=== PATIENT | female | born 1975 | race Caucasian/White ===

== ENCOUNTER 2023-10-27 15:46 | Outpatient (REF) | payer BC, SELFPAY ==
[2023-10-27 21:16] LABS: TSH 0.74 uIU/mL (0.36-3.74)
== END 2023-10-27 15:47 | disposition home or self-care (01) ==
LOC: NCHCN 15:46
PROVIDERS: PCP Internal Medicine; Visit Provider Nurse Practitioner Family
DX: R22.1 Localized swelling, mass and lump, neck (principal)
CPT/HCPCS: 84439; 84443

== ENCOUNTER 2023-12-06 17:08 | Outpatient (REF) | payer BC, SELFPAY ==
--- NOTE | 2023-12-06 14:30 | PAPNONF_PTH ---
PATIENT: Janie Askew LOC: [facility] U#:[id number] AGE/SX: 48/F ROOM: RE12/06/[address]: Raya Rob : 1975 BED: DIS: 12/06/2023 SPEC #: [id number] RECD: 12/06/23 18:21 STATUS: DIGNA REDaniel #: [id number] [place]: 12/06/23 14:[address]: Raya Rob DEPT: [facility] Cytology RECD BY: Iona Larsen ENTERED: 12/06/23 18:22 SP TYPE: NESSA AVILES DR: Miriam Quiles Tissues: 1 - BODY FLUID CYTO-FINE NEEDLE [facility] Procedures: BODY FLUID CYTO-FINE NEEDLE ASPIRATE[facility] Comments: [id number] (REFRIGERATED)
== END 2023-12-06 17:09 | disposition home or self-care (01) ==
LOC: LBN 17:08
PROVIDERS: PCP Nurse Practitioner Family; Visit Provider Registered Nurse Maternal Newborn
DX: E04.1 Nontoxic single thyroid nodule (principal)
CPT/HCPCS: 88104

== ENCOUNTER → 2023-12-21 04:04 | Outpatient (CLI) | payer BC, SELFPAY ==
--- NOTE | 2023-12-21 07:45 | DI.US_ITS ---
Exam(s) US NEEDLE LOCAL OTHER WO RAD EXAM: US NEEDLE LOCAL OTHER WO RAD CLINICAL HISTORY: right-sided thyroid nodule, TR 4,ultraosound guided bx,e04.1. COMPARISON: US US SOFT TISSUE HEAD OR NECK from 11/02/2023 TECHNIQUE: Ultrasound guidance was provided for ultrasound-guided FNA performed by surgeon. Please see procedure report for details. FINDINGS: Images reveal multiple passes into the nodule of concern in the right lobe. IMPRESSION: Successful Ultrasound-guided Localization. DATA REPOSITORY:
--- NOTE | 2023-12-21 13:30 | PAPNONF_PTH ---
PATIENT: Janie Askew LOC: [facility] U#:[id number] AGE/SX: 50/F ROOM: RE12/21/[address]: Raya Rob : 1975 BED: DIS: SPEC #: [id number] RECD: 12/21/23 17:54 STATUS: DIGNA REQ #: [id number] [place]: 12/21/23 13:[address]: Raya Rob DEPT: [facility] Cytology RECD BY: Iona Larsen ENTERED: 12/21/23 17:55 SP TYPE: NESSA AVILES DR: Miriam Quiles Tissues: 1 - BODY FLUID CYTO-FINE NEEDLE [facility]ATE[facility] Procedures: BODY FLUID CYTO-FINE NEEDLE [facility]ATE[facility] Comments: [id number] (AFIRMA ONLY-N/C)(SEE [id number], [facility]# [id number])
--- NOTE | 2023-12-21 13:51 | W.PROCNOTE ---
Date of service: 12/21/23 Time of Service: 13:51 Procedure Note Date of procedure: 12/21/23 Procedure: Ultrasound-guided FNA for Afirma testing, right thyroid nodule Procedure Diagnosis: Right-sided mixed solid and cystic thyroid nodule Procedure Indications: The patient previous underwent FNA of the right thyroid nodule in the office. This had features that were concerning for an atypia of unknown significance with features that were concerning for possible papillary carcinoma. Options were explained to the patient regarding further management. She elected to undergo the Afirma testing while waiting for her appointment [place] [facility] Risks including bleeding, infection were discussed at length. Consent was obtained. The below was then performed. Procedure Description: The patient was positioned in supine position and prepped and draped in appropriate fashion. 1% lidocaine with 1/100,000 epinephrine was injected medial to the thyroid nodule after localizing the thyroid nodule with ultrasound. FNA was then conducted of the thyroid nodule wall solid component using ultrasound guidance. This was then placed and Afirma. This was repeated x 2. Sterile dressing was then applied. Of note the cystic contents appeared to be a chocolate brown material. The cyst was not aspirated save for to identify the cystic contents her vital signs remained stable and she was able to ambulate afterwards without difficulty. She will call if she does not hear from me within 3 weeks with regard to pathology results. She will keep her appointment as scheduled at [facility] [place]. Stormy Spear. She will call with any signs of infection. She will remove the bandage in a couple of hours and not replace it. She may use ibuprofen or Tylenol for discomfort.
== END ==
PROVIDERS: PCP Nurse Practitioner Family; Visit Provider Registered Nurse Maternal Newborn
DX: E04.1 Nontoxic single thyroid nodule (principal)
CPT/HCPCS: 10005; 76942; 88104

== ENCOUNTER 2024-01-13 02:59 | Outpatient (CLI) | payer BC, SELFPAY ==
[2024-01-13 12:17] LABS: Calculated LDL 106 mg/dL (<100); Cholesterol 199 mg/dL (<200); Glucose 92 mg/dL (74-106); HDL Cholesterol 62 mg/dL (40-60); Triglyceride 155 mg/dL (<150)
== END 2024-01-13 03:00 | disposition home or self-care (01) ==
LOC: LBO 03:00
PROVIDERS: PCP Nurse Practitioner Family; Visit Provider Nurse Practitioner Family
DX: Z13.220 Encounter for screening for lipoid disorders (principal); Z13.1 Encounter for screening for diabetes mellitus
CPT/HCPCS: 36415; 80061; 82947

== ENCOUNTER 2024-01-31 20:57 | Outpatient (REF) | payer BC, SELFPAY ==
[2024-01-31 18:49] LABS: Anion Gap 5.7 mmol/L (3-11); BUN 15 mg/dL (7-18); CO2 27.3 mmol/L (21.0-32.0); CREATININE 0.8 mg/dL (0.55-1.02); Calcium 8.9 mg/dL (8.5-10.1); Chloride 106 mmol/L (98-107); Estimated GFR 89.71 (mL/min/1.73m2); Glucose 109 mg/dL (74-106); Potassium 4.1 mmol/L (3.5-5.1); Sodium 139 mmol/L (136-145)
== END 2024-01-31 20:58 | disposition home or self-care (01) ==
LOC: NCHCN 20:57
PROVIDERS: PCP Nurse Practitioner Family; Visit Provider Nurse Practitioner Family
DX: R03.0 Elevated blood-pressure reading, without diagnosis of hypertension (principal)
CPT/HCPCS: 80048

== ENCOUNTER 2024-02-17 16:42 | Outpatient (REF) | payer BC, SELFPAY ==
[2024-02-17 18:52] LABS: Anion Gap 10.5 mmol/L (3-11); BUN 16 mg/dL (7-18); CO2 23.5 mmol/L (21.0-32.0); CREATININE 0.7 mg/dL (0.55-1.02); Chloride 105 mmol/L (98-107); Glucose 99 mg/dL (74-106); Potassium 4.1 mmol/L (3.5-5.1); Sodium 139 mmol/L (136-145)
== END 2024-02-17 16:43 | disposition home or self-care (01) ==
LOC: NCHCN 16:42
PROVIDERS: PCP Nurse Practitioner Family; Visit Provider Nurse Practitioner Family
DX: I10 Essential (primary) hypertension (principal)
CPT/HCPCS: 80048

== ENCOUNTER 2024-04-06 21:56 | Outpatient (REF) | payer BC, SELFPAY ==
[2024-04-06 19:10] LABS: Anion Gap 9.7 mmol/L (3-11); BUN 13 mg/dL (7-18); CO2 29.3 mmol/L (21.0-32.0); CREATININE 0.7 mg/dL (0.55-1.02); Calcium 9.5 mg/dL (8.5-10.1); Chloride 102 mmol/L (98-107); Glucose 98 mg/dL (74-106); Potassium 3.7 mmol/L (3.5-5.1); Sodium 141 mmol/L (136-145)
== END 2024-04-06 21:57 | disposition home or self-care (01) ==
LOC: NCHCN 21:56
PROVIDERS: PCP Nurse Practitioner Family; Visit Provider Physician Assistant Medical
DX: R03.0 Elevated blood-pressure reading, without diagnosis of hypertension (principal)
CPT/HCPCS: 80048

== ENCOUNTER 2024-05-08 11:11 | Emergency (ER) | payer BC, SELFPAY ==
[2024-05-08] VITALS (72 sets, daily range): BP systolic 132–215; BP diastolic 68–130; PULSE 71–161; RESP 10–43; TEMP 37.1; O2SAT 84–100
--- NOTE | 2024-05-08 11:15 | RT.EKG_ITS ---
APPROVED REPORT Exam: Resting ECG Reason for Exam: tachycardia, shortness of breath Patient Location: E HR:117 bpm ECG Measurements Heart Rate 117 AXIS VA 138 P 63 QRSd 82 QRS 54 QT 327 T 27 QTc 457 Conclusion Sinus tachycardia...rate> 99 Consider anteroseptal infarct...Q >30mS, dimin R, V1-V2
[2024-05-08 11:32] LABS: HCT 44.9 % (36.0-46.0); HGB 15.2 g/dL (11.2-15.7); MCH 31.7 pg (27.0-33.0); MCHC 33.9 % (32.0-36.0); MCV 94 fL (80-95); MPV 9.3 fL (8.0-11.0); Platelet Count 336 10^3/uL (130-400); RDW 12.6 % (11.7-14.6); RDW-SD 43.8 fL; WBC 10.59 10^3/uL (4.4-10.8)
[2024-05-08] MEDS: LORazepam 2 MG/ML VIAL 1 MG IVP (11:34)
[2024-05-08] MEDS: Lactated Ringers 1,000 ML 1000 ML IV (11:34)
[2024-05-08 11:54] LABS: Absolute Eosinophil Count 0.42 10^3/uL (0.0-0.7); Absolute Lymphocyte Count 4.77 10^3/uL (1.2-3.4); Absolute Monocyte Count 0.64 10^3/uL (0.1-0.8); Absolute Neutrophil Count 4.66 10^3/uL (1.2-6.7); Atypical Lymphocytes % 25 %; Diff Comment Manual Differential; RBC Morphology Normal
[2024-05-08 11:59] LABS: ALT 26 U/L (14-59); AST 21 U/L (15-37); Albumin 4.5 g/dL (3.4-5.0); Alkaline Phosphatase 120 U/L (46-116); BUN 14 mg/dL (7-18); Bilirubin, Total 0.94 mg/dL (0.2-1.0); CREATININE 1.1 mg/dL (0.55-1.02); Calcium 8.3 mg/dL (8.5-10.1); Chloride 99 mmol/L (98-107); Estimated GFR 61.22 (mL/min/1.73m2); Glucose 138 mg/dL (74-106); Magnesium 1.8 mg/dL (1.8-2.4); Potassium 4.1 mmol/L (3.5-5.1); Sodium 142 mmol/L (136-145); TSH (W/Ref FT4) 0.16 uIU/mL (0.36-3.74); Total Protein 8.6 g/dL (6.4-8.2); Troponin I < 50 ng/L (< or =60)
[2024-05-08 12:08] LABS: D-Dimer 807 ng/mlFEU (<500)
[2024-05-08 12:15] LABS: FREE T4 1.54 ng/dL (0.76-1.46)
--- NOTE | 2024-05-08 13:00 | DI.RAD_ITS ---
Exam(s) XR PORTABLE CHEST AP EXAM: XR PORTABLE CHEST AP CLINICAL HISTORY: tachycardia TECHNIQUE: 2D digital imaging was performed. COMPARISON: No exams were available for comparison FINDINGS: LUNGS: Clear. No pleural abnormality seen. HEART: Normal size. AORTA: Normal diameter. BONES: Unremarkable for age. Soft tissues: Unremarkable. IMPRESSION: No acute findings. DATA REPOSITORY: RADIATION DOSE DELIVERED:
--- NOTE | 2024-05-08 13:12 | DI.NM_ITS ---
Exam(s) NM LUNG SCAN VENT PERF GRP EXAM: NM LUNG SCAN VENT PERF GRP CLINICAL HISTORY: elevated ddimer. TECHNIQUE: Injected Dose: Ventilation: 34 mCi Tc-99m DTPA via inhalation Perfusion: 5.2 mCi Tc-99m MAA via IV COMPARISON: CR XR PORTABLE CHEST AP from 05/08/2024 FINDINGS: Chest X-Ray: Clear lungs. Perfusion: Normal. Ventilation:Normal IMPRESSION: 1. This is a normal perfusion scan. This is low probability. Modified PIOPED II criteria Probability Criteria High Two or more segments of V/Q mismatch Low Normal Perfusion, Non segmental perfusion abnormalitie s, pleural effusion in at least 1/3 of pleural cavity with no other defect Radiograph/perfusion matched defect in mid to upper lung confined to segment, one to three small segmental perfusion defects (<25% of segment) Perfusion defect smaller than corresponding radiogra phic lesion. Intermediate All other findings DATA REPOSITORY:
--- NOTE | 2024-05-08 15:25 | ED.GENADUL_ITS ---
Discharge Plan Disposition Patient Disposition: Home Condition: Stable Discharge Details Clinical Impression: Hypocalcemia Primary Care Provider: Miriam Quiles ED Provider: Carlos Anthony Home Meds and New Rx's Prescriptions: Continued fluoxetine [Prozac] 10 mg capsule 10 mg PO DAILY levothyroxine 150 mcg tablet 150 mcg PO ONCE Patient Comments: TAKE ONE TABLET BY MOUTH EVERY DAY hydrochlorothiazide 25 mg tablet 25 mg PO DAILY Patient Comments: TAKE ONE TABLET BY MOUTH EVERY MORNING No Action calcium carbonate [Calcium 600] 600 mg calcium (1,500 mg) tablet 1,200 mg PO BID Discharge Instructions Instructions: Hypocalcemia Additional Instructions: Please take your medication as prescribed. Please follow-up with your primary care physician. Please call today to arrange timely follow-up. Please rest with no exertional activities over the next week. Return to the emergency department immediately for any worsening or new concerning symptoms. Referrals: Miriam Quiles APRN [Primary Care Provider] - Discharge Data Discharge Date/Time-TO BE ENTERED AT DEPARTURE: 05/08/24 18:29 HPI General Date/Time Provider Initiated Documentation: 05/08/24 11:23 . Limitations to Documentation: no limitations . Information obtained by: patient . HPI Narrative: 57-year-old female presents with carpopedal spasm and tingling of the lips with anxiety and dyspnea. Symptoms started after exertional activities mowing the yard in the heat. Symptoms are severe. She feels like she cannot breathe. She notes she feels like she cannot feel her arms bilaterally. She also notes her legs are numb and tingly bilaterally. Patient is approximately 2 weeks status post thyroidectomy for thyroid cancer. She notes she was concerned that this was related to hypocalcemia and did take her calcium supplement after symptoms started. Related Data Home Medications ?Medication ?Instructions ?Recorded ?Confirmed fluoxetine 10 mg capsule (Prozac) 10 mg PO DAILY 12/06/23 05/08/24 calcium carbonate (Calcium 600) 1,200 mg PO BID 05/08/24 05/08/24 hydrochlorothiazide 25 mg tablet 25 mg PO DAILY 05/08/24 05/08/24 levothyroxine 150 mcg tablet 150 mcg PO ONCE 05/08/24 05/08/24 Allergies Allergy/AdvReac Type Severity Reaction Status Date / Time No Known Allergies Allergy Verified 05/08/24 13:12 General Stated Complaint: GenMedical CRYSTAL: 2 Review of Systems All systems reviewed & are unremarkable except as noted in HPI and below Constitutional Constitutional: Denies fever(s) Cardiovascular Cardiovascular: Denies chest pain and Reports dyspnea Respiratory Respiratory: Reports dyspnea Exam Const General: cooperative Orientation: alert Other: Anxious on arrival HENTN Mouth: moist mucous membranes Eyes Conjunctivae: normal conjunctivae Sclera: normal sclerae Neck Neck: trachea midline and supple Resp Auscultation: clear to auscultation bilaterally, no rales, no rhonchi and no wheezes Cardio Rate: regular rate and not tachycardic Rhythm: regular rhythm GI Palpation: soft, not firm, no guarding, no masses, not rigid and nontender Skin General skin exam: no rashes or lesions noted Neuro General: patient alert, patient awake and tone normal Cranial Nerves: CN's II-XI intact bilaterally Cognition: normal cognition Speech: speech normal Motor: strength 5/5 throughout Sensory Exam: no sensory deficits noted Extrem General: no edema Other: Spasms of her arms and legs Psych Appearance: grossly normal Mental Status: mental status grossly normal Affect: anxious affect Course Vital Signs Vital signs: Vital Signs Pulse 159 H 05/08/24 11:20 Respiratory Rate 28 H 05/08/24 11:20 Blood Pressure 215/130 H 05/08/24 11:20 Pulse Oximetry 99 05/08/24 11:20 Temperature 37.1 C 05/08/24 11:34 Temperature Source Tympanic 05/08/24 11:34 Pulse 82 05/08/24 15:16 Pulse 79 05/08/24 15:16 Respiratory Rate 17 05/08/24 15:16 Respiratory Effort Normal 05/08/24 11:34 Respiratory Depth Normal 05/08/24 11:34 Respiratory Pattern Normal 05/08/24 11:34 Blood Pressure 146/80 H 05/08/24 15:16 Blood Pressure Mean 101 05/08/24 15:16 Blood Pressure Position Supine 05/08/24 11:34 Pulse Oximetry 96 05/08/24 15:16 Oxygen Delivery Method Room Air 05/08/24 11:34 Oxygen Flow Rate 0 05/08/24 11:20 Pain Level 0 05/08/24 11:20 Lab/Test Results Lab/Test Results: Laboratory Tests Range/Units 05/08/24 11:25 WBC (4.4-10.8) 10^3/uL 10.59 RBC (3.93-5.22) 10^6/uL 4.80 Hgb (11.2-15.7) g/dL 15.2 Hct (36.0-46.0) % 44.9 MCV (80-95) fL 94 MCH (27.0-33.0) pg 31.7 MCHC (32.0-36.0) % 33.9 RDW (11.7-14.6) % 12.6 Plt Count (130-400) 10^3/uL 336 MPV (8.0-11.0) fL 9.3 Immature Gran % % 0.0 Neutrophils % % 44.0 Lymphocytes % % 20.0 Atypical Lymphs % % 25 Monocytes % % 6.0 Eosinophils % % 4.0 Basophils % % 0.0 Nucleated RBC % (0.0-0.3) % 0.0 Absolute Neutrophils (1.2-6.7) 10^3/uL 4.66 Absolute Lymphocytes (1.2-3.4) 10^3/uL 4.77 H Absolute Monocytes (0.1-0.8) 10^3/uL 0.64 Absolute Eosinophils (0.0-0.7) 10^3/uL 0.42 Absolute Basophils (0.0-0.2) 10^3/uL 0.00 RBC Morphology Normal D-Dimer (<500) ng/mlFEU 807 H Sodium (136-145) mmol/L 142 Potassium (3.5-5.1) mmol/L 4.1 Chloride (98-107) mmol/L 99 Carbon Dioxide (21.0-32.0) mmol/L 25.0 Anion Gap (3-11) mmol/L 18.0 H BUN (7-18) mg/dL 14 Creatinine (0.55-1.02) mg/dL 1.1 H Est GFR (CKD-EPI 2020) (mL/min/1.73m2) 61.22 Glucose (74-106) mg/dL 138 H Calcium (8.5-10.1) mg/dL 8.3 L Magnesium (1.8-2.4) mg/dL 1.8 Total Bilirubin (0.2-1.0) mg/dL 0.94 AST (15-37) U/L 21 ALT (14-59) U/L 26 Alkaline Phosphatase (46-116) U/L 120 H Troponin I (< or =60) ng/L < 50 Total Protein (6.4-8.2) g/dL 8.6 H Albumin (3.4-5.0) g/dL 4.5 TSH (0.36-3.74) uIU/mL 0.16 L Free T4 (0.76-1.46) ng/dL 1.54 H Medical Decision Making 57-year-old female presents with carpopedal spasm and tingling of the lips with anxiety and dyspnea. Symptoms started after exertional activities mowing the yard in the heat. Patient is approximately 2 weeks status post thyroidectomy for thyroid cancer. She notes she was concerned that this was related to hypocalcemia and did take her calcium supplement after symptoms started. EKG was reviewed and interpreted by me: Please see report: Sinus tachycardia 117 bpm, no STEMI. Patient quite anxious on arrival. She was given Ativan 1 mg IV. Initial labs reviewed: D-dimer is elevated. CT is not available. VQ scan was performed and interpreted by radiology: Normal perfusion. No evidence of pulmonary embolism. Suspect hypocalcemia. Patient did take her calcium supplement prior to arrival and continue to have hypocalcemia. Will give calcium gluconate IV. Patient has had a prolonged ED observation at this point. She has been symptom- free here after Ativan. 1750 --patient reassessed and notes she continues to feel well. Plan for discharge upon completion of calcium infusion. Plan for outpatient follow-up with PCP. Disposition decision was made weighing the risks and benefits of hospitalization versus outpatient treatment, the risk for further decompensation, and the patient's wishes. The patient was stable and requested discharge. Prior to discharge, my usual and customary return precautions were reviewed with the patient - this included follow-up instructions and reason to return to the emergency department if condition worsens, does not improve as expected, or other new concerns arise. Lab Data Lab results reviewed: Yes I reviewed the patient's lab results. Labs: Laboratory Tests Range/Units 05/08/24 11:25 WBC (4.4-10.8) 10^3/uL 10.59 RBC (3.93-5.22) 10^6/uL 4.80 Hgb (11.2-15.7) g/dL 15.2 Hct (36.0-46.0) % 44.9 MCV (80-95) fL 94 MCH (27.0-33.0) pg 31.7 MCHC (32.0-36.0) % 33.9 RDW (11.7-14.6) % 12.6 Plt Count (130-400) 10^3/uL 336 MPV (8.0-11.0) fL 9.3 Immature Gran % % 0.0 Neutrophils % % 44.0 Lymphocytes % % 20.0 Atypical Lymphs % % 25 Monocytes % % 6.0 Eosinophils % % 4.0 Basophils % % 0.0 Nucleated RBC % (0.0-0.3) % 0.0 Absolute Neutrophils (1.2-6.7) 10^3/uL 4.66 Absolute Lymphocytes (1.2-3.4) 10^3/uL 4.77 H Absolute Monocytes (0.1-0.8) 10^3/uL 0.64 Absolute Eosinophils (0.0-0.7) 10^3/uL 0.42 Absolute Basophils (0.0-0.2) 10^3/uL 0.00 RBC Morphology Normal D-Dimer (<500) ng/mlFEU 807 H Sodium (136-145) mmol/L 142 Potassium (3.5-5.1) mmol/L 4.1 Chloride (98-107) mmol/L 99 Carbon Dioxide (21.0-32.0) mmol/L 25.0 Anion Gap (3-11) mmol/L 18.0 H BUN (7-18) mg/dL 14 Creatinine (0.55-1.02) mg/dL 1.1 H Est GFR (CKD-EPI 2020) (mL/min/1.73m2) 61.22 Glucose (74-106) mg/dL 138 H Calcium (8.5-10.1) mg/dL 8.3 L Magnesium (1.8-2.4) mg/dL 1.8 Total Bilirubin (0.2-1.0) mg/dL 0.94 AST (15-37) U/L 21 ALT (14-59) U/L 26 Alkaline Phosphatase (46-116) U/L 120 H Troponin I (< or =60) ng/L < 50 Total Protein (6.4-8.2) g/dL 8.6 H Albumin (3.4-5.0) g/dL 4.5 TSH (0.36-3.74) uIU/mL 0.16 L Free T4 (0.76-1.46) ng/dL 1.54 H Quality:SDOH Health Related Social Needs: No Data to Display PFSH All Active Problems (Updated 05/08/24 @ 16:45 by Carlos Anthony MD) Hypocalcemia (Acute) Thyroid nodule (Acute) Medical History (Updated 05/08/24 @ 16:45 by Carlos Anthony MD) History of depression Neck swelling Acute sinusitis Social History Smoking/Tobacco Use Status: Former Tobacco Use Tobacco: How many years used: 25 Smoking risk assessment performed?: Yes Alcohol Intake: current Alcohol Intake frequency: a few times a week Housing: house Do you feel safe at home: No Do you feel safe in your relationship?: No
--- NOTE | 2024-05-08 16:40 | DI.VRAD_ITS ---
PROCEDURE INFORMATION: Exam: NM Lung Ventilation and Perfusion Imaging Exam date and time: 05/08/2024 3:45 PM Age: 49 years old Clinical indication: Dyspnea and other: Elevated d-dimer TECHNIQUE: Imaging protocol: Nuclear pulmonary ventilation with aerosol or gas was performed followed by perfusion. Radiopharmaceutical: 5.2 mCi Tc-99m MAA (Macroaggregated Albumin), IV. 34 mCi Tc-99m DTPA (DTPA Aerosol), Inhalation. COMPARISON: CR XR PORTABLE CHEST AP 05/08/2024 1:54 PM FINDINGS: Ventilation: Normal. No ventilation defects. Perfusion: Normal. No perfusion defects. IMPRESSION: Normal perfusion. No evidence of pulmonary embolism. Dictated and Authenticated by: Luciano Hogan MD. Ordering:JESSI Gonzalez MD
[2024-05-08] MEDS: CALCIUM GLUCONATE in NaCl 1 GM/50 ML BAG IVPB (17:44)
== END 2024-05-08 18:29 | disposition home or self-care (01) ==
PROVIDERS: Emergency Provider Student in an Organized Health Care Education/Training Program; PCP Nurse Practitioner Family
DX: E83.51 Hypocalcemia (principal); E89.0 Postprocedural hypothyroidism; Z85.850 Personal history of malignant neoplasm of thyroid; Z87.891 Personal history of nicotine dependence
CPT/HCPCS: 78582; 80053; 93005; 96361; 96365; 96375; 99285; 71045; 83735; 84439; 84443; 84484; 85025; 85379; 93010; 99284; J0613; J2060

== ENCOUNTER 2024-07-06 03:26 | Outpatient (CLI) | payer BC, SELFPAY ==
[2024-07-06 16:40] LABS: Calcium 7.3 mg/dL (8.5-10.1); Vitamin D 25 Total 22.5 ng/mL (30-100)
[2024-07-06 21:48] LABS: Ionized Calcium 0.85 mmol/L (1.14-1.35)
[2024-07-07 18:33] LABS: Parathyroid Hormone,Intact 27 pg/mL (19-88)
== END 2024-07-06 03:27 | disposition home or self-care (01) ==
LOC: LBO 03:26
PROVIDERS: PCP Nurse Practitioner Family; Visit Provider Nurse Practitioner Adult Health
DX: E83.51 Hypocalcemia (principal)
CPT/HCPCS: 36415; 82306; 82310; 82330; 83970

== ENCOUNTER 2024-08-24 15:42 | Outpatient (CLI) | payer BC, SELFPAY ==
[2024-08-24 16:27] LABS: Calcium 8.4 mg/dL (8.5-10.1)
[2025-08-27 09:38] LABS: Parathyroid Hormone,Intact 17 pg/mL (19-88)
== END 2024-08-24 15:43 | disposition home or self-care (01) ==
LOC: LBO 15:46
PROVIDERS: PCP Nurse Practitioner Family; Visit Provider Nurse Practitioner Adult Health
DX: E83.51 Hypocalcemia (principal)
CPT/HCPCS: 36415; 82310; 83970

== ENCOUNTER 2024-09-08 15:11 | Inpatient (IN) | payer BC, SELFPAY ==
[2024-09-08] VITALS (60 sets, daily range): BP systolic 113–192; BP diastolic 64–96; PULSE 74–147; RESP 11–46; TEMP 36.2–37.2; O2SAT 65–100
--- NOTE | 2024-09-08 15:15 | RT.EKG_ITS ---
APPROVED REPORT Exam: Resting ECG Reason for Exam: sob Patient Location: E HR:112 bpm ECG Measurements Heart Rate 112 AXIS GA 129 P 51 QRSd 89 QRS 60 QT 398 T -47 QTc 544 Conclusion Sinus tachycardia 112 poor baseline
--- NOTE | 2024-09-08 15:29 | ED.GENADUL_ITS ---
Discharge Plan Disposition Patient Disposition: Admit to [facility] Condition: Stable Discharge Details Clinical Impression: Hypokalemia, Acute hyperventilation Primary Care Provider: Miriam Mayo ED Provider: Ken Richard Home Meds and New Rx's Prescriptions: No Action fluoxetine [Prozac] 10 mg capsule 10 mg PO DAILY levothyroxine 150 mcg tablet 150 mcg PO ONCE Patient Comments: TAKE ONE TABLET BY MOUTH EVERY DAY hydrochlorothiazide 25 mg tablet 25 mg PO DAILY Patient Comments: TAKE ONE TABLET BY MOUTH EVERY MORNING calcium carbonate [Calcium 600] 600 mg calcium (1,500 mg) tablet 1,200 mg PO BID HPI General Date/Time Provider Initiated Documentation: 09/08/24 15:17 . HPI Narrative: 49 year-old female presents to ED today by POV/ambulating with a chief complaint of muscle spasms and contractures of upper extremities, headaches, body aches, similar to her presentation back in May when she had low calcium, had a thyroidectomy this past summer, they were supposed to leave the parathyroids with onset acutely around 1500 today. Quality described as painful muscle contractures, feels hot & flushed, no radiation to chest pain, abdominal pain, nausea/vomiting, visual changes, slurred speech, back pain, recent URI, neck stiffness. Severity is described as severe. Palliating factors include nothing specific attempted. Provoking factors include nothing specific. Events leading up to the incident/Associated Symptoms: Patient takes daily calcium supplements. Patient not anticoagulated. Related Data Home Medications ?Medication ?Instructions ?Recorded ?Confirmed fluoxetine 10 mg capsule (Prozac) 10 mg PO DAILY 12/06/23 09/08/24 calcium carbonate (Calcium 600) 1,200 mg PO BID 05/08/24 09/08/24 hydrochlorothiazide 25 mg tablet 25 mg PO DAILY 05/08/24 09/08/24 levothyroxine 150 mcg tablet 150 mcg PO ONCE 05/08/24 09/08/24 Allergies Allergy/AdvReac Type Severity Reaction Status Date / Time No Known Allergies Allergy Verified 09/08/24 15:19 General Stated Complaint: GenMedical CRYSTAL: 3 Review of Systems All systems reviewed & are unremarkable except as noted in HPI and below Exam Narrative Exam Narrative: GENERAL APPEARANCE: Well-nourished, toxic, awake and alert, atraumatic, moderate acute distress. SKIN: Warm, pink, dry, intact, without rashes/lesions/ulcerations. HEAD: Normocephalic, atraumatic, normal hair distribution for gender/age. EYES: Normal conjunctiva, no exudates on lids/lashes. ENT: Nares patent, no circumoral cyanosis, no facial swelling NECK: Supple, trachea midline, painless cervical ROM. LUNGS/CHEST: Lungs CTA bilaterally, non-labored respirations, normal A/P di ameter, symmetrical expansion, no chest wall deformity HEART (CV/PV): Regular rate and rhythm without murmur- then having tachycardic episodes of 140s, sinus, no peripheral edema, no JVD. ABDOMEN: Soft, non-distended, no guarding, no tenderness. MSK: Normal ROM, no swelling/deformity to bilateral UEs or LEs, moving all extremities without weakness, no cyanosis, spine midline without tenderness, n ormal curvature. NEURO: Mental Status AAOx4 - alert to person, place, time, events No facial droop, no forehead involvement. Motor: No focal weakness - strength 5/5 in bilateral UEs and LEs, proximal and distal, symmetric. Holding arms in flexion for brief 5 minute periods of muscle spasm, able to still move them during episodes but limited ROM . Sensory: sensation intact to light touch globally. Gait normal: patient ambulated without ataxia into ED room. PSYCH: euthymic, cooperative, pleasant, appropriate speech Course Vital Signs Vital signs: Vital Signs Temperature 36.2 C L 09/08/24 15:15 Pulse 108 H 09/08/24 15:15 Respiratory Rate 18 09/08/24 15:15 Blood Pressure 179/77 H 09/08/24 15:15 Temperature 36.2 C L 09/08/24 15:15 Temperature Source Oral 09/08/24 15:15 Pulse 108 H 09/08/24 15:15 Respiratory Rate 18 09/08/24 15:15 Blood Pressure 179/77 H 09/08/24 15:15 Lab/Test Results Lab/Test Results: Laboratory Tests Range/Units 09/08/24 15:18 VBG pH Cancelled VBG pCO2 Cancelled VBG pO2 Cancelled VBG HCO3 Cancelled VBG Total CO2 Cancelled VBG O2 Saturation Cancelled VBG Base Excess Cancelled Medical Decision Making This dictation utilizes [id number] dictation software and may contain unedited grammatical errors. 49 year-old female presents to ED today by POV/ambulating with a chief complaint of muscle spasms and contractures of upper extremities, headaches, body aches, similar to her presentation back in May when she had low calcium, had a thyroidectomy this past summer, they were supposed to leave the parathyroids with onset acutely around 1500 today. Quality described as painful muscle contractures, feels hot & flushed, no radiation to chest pain, abdominal pain, nausea/vomiting, visual changes, slurred speech, back pain, recent URI, neck stiffness. Severity is described as severe. Palliating factors include nothing specific attempted. Provoking factors include nothing specific. Events leading up to the incident/Associated Symptoms: Patient takes daily calcium supplements. Patients' medical history: Thyroid cancer, otherwise noncontributory. Family and social history: Lives at home with . Pertinent exam findings / vital signs include intermittent episodes of spasm and arms held in flexion with flushing to the face and tachycardia, patient is responsive throughout these episodes, is benign abdomen, neuro intact, occasionally desaturates to 70% SpO2 likely due to prolonged hyperventilation and low pCO2. Differential / pathologies of concern include hypocalcemia, thyroid storm, hy pokalemia, hypomagnesemia, psychogenic muscle spasm, rhabdomyolysis. Diagnostic studies of: -CBC, CMP, ABG, TSH with reflex, UA, UDS, serial troponins, serial EKGs, CK, lactate, alcohol level, CT chest PE study. Interventions of: -40mEq PO K+, 20mEq K+ IV x2, 1gm IV magnesium, Ca2++ 600mg PO, 1L IVF NS. ED Course/Assessment/Plan: 49-year-old female presents with acute sudden onset tingling all over her body and in various muscle pains, is holding her arms and flexion and has her eyes closed but is still responsive and hyperventilating tacky in the 140s onset around 1500. 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 Her laboratory workup did not show abnormal calcium level or mag nesium level but did show significant hypokalemia without EKG changes, I am unclear what is causing her episodes of flush and muscle spasm with tachycardia, she has significant signs of acute hyperventilation and has repeatedly desaturated as she nodded off to sleep down to the upper 60s and 70s with quick return to normal O2 with coaching on breathing. I spoke with Dr Barton of [facility] at 1920- do not suspect any mets, patient has radiation treatment upcoming on Wednesday at [facility], they will likely need to delay. Spoke with ICU Team at [facility] in regards to repeat potassium of 1.6, they are unsure of etiology, but recommend re-consult for downtrending K+ despite repletion. Spoke with Dr. Schumacher and patient will be admitted for hypokalemia, and observed overnight for her hyperventilation/desaturation syndrome, still unclear on what is causing her tachycardia episodes, but hopefully will resolve with normal potassium level and acid/base balance. Possible psychogenic cause? Disposition of Hypokalemia, Acute Hyperventilation. Patient verbalized understanding of the plan and return to ED criteria and engaged in shared decision making. Medical Records Medical records reviewed: Yes I reviewed the patient's medical records. Imaging Data Radiologic Study: Attestation: I personally reviewed and interpreted this imaging study as follows: Imaging: CT Scan Lab Data Lab results reviewed: Yes I reviewed the patient's lab results. Labs: Laboratory Tests Range/Units 09/08/24 09/08/24 09/08/24 15:18 15:35 15:50 WBC (4.4-10.8) 10^3/uL 9.15 RBC (3.93-5.22) 10^6/uL 4.86 Hgb (11.2-15.7) g/dL 15.2 Hct (36.0-46.0) % 43.0 MCV (80-95) fL 89 MCH (27.0-33.0) pg 31.3 MCHC (32.0-36.0) % 35.3 RDW (11.7-14.6) % 11.8 Plt Count (130-400) 10^3/uL 309 MPV (8.0-11.0) fL 9.6 Immature Gran % % 0.2 Neutrophils % % 40.4 Lymphocytes % % 45.5 Monocytes % % 12.9 Eosinophils % % 0.7 Basophils % % 0.3 Nucleated RBC % (0.0-0.3) % 0.0 Absolute Neutrophils (1.2-6.7) 10^3/uL 3.70 Absolute Lymphocytes (1.2-3.4) 10^3/uL 4.16 H Absolute Monocytes (0.1-0.8) 10^3/uL 1.18 H Absolute Eosinophils (0.0-0.7) 10^3/uL 0.06 Absolute Basophils (0.0-0.2) 10^3/uL 0.03 ABG Sample Site Left Radial ABG pH (7.35-7.45) 7.68 H* ABG pCO2 (35-45) mmHg 20 L ABG pO2 (80-105) mmHg 114 H ABG HCO3 (22-26) mmol/L 23 ABG Total CO2 (23-27) mmol/L ABG O2 Saturation (95-98) % > 99 H ABG Base Excess (-2-3) mmol/L 3 VBG pH Cancelled VBG pCO2 Cancelled VBG pO2 Cancelled VBG HCO3 Cancelled VBG Total CO2 Cancelled VBG O2 Saturation Cancelled VBG Base Excess Cancelled VBG Lactate (0.6-1.4) mmol/L 9.8 H* Sodium (136-145) mmol/L 133 L Potassium (3.5-5.1) mmol/L 2.5 L* Chloride (98-107) mmol/L 86 L Carbon Dioxide (21.0-32.0) mmol/L 24.1 Anion Gap (3-11) mmol/L 22.9 H BUN (7-18) mg/dL 9 Creatinine (0.55-1.02) mg/dL 1.1 H Est GFR (CKD-EPI 2020) (mL/min/1.73m2) 61.22 Glucose (74-106) mg/dL 143 H Calcium (8.5-10.1) mg/dL 8.5 Magnesium (1.8-2.4) mg/dL 2.0 Total Bilirubin (0.2-1.0) mg/dL 1.08 H AST (15-37) U/L 18 ALT (14-59) U/L 14 Alkaline Phosphatase (46-116) U/L 96 Creatine Kinase (26-192) U/L 295 H Troponin I (<or=51) ng/L 4 NT-Pro-B Natriuret Pep (<300) pg/mL Total Protein (6.4-8.2) g/dL 8.3 H Albumin (3.4-5.0) g/dL 4.5 Lipase (16-77) U/L 35 TSH (0.36-3.74) uIU/mL 0.03 L Free T4 (0.76-1.46) ng/dL 2.38 H Urine Color (Yellow) Urine Clarity (Clear) Urine pH (5-8) Ur Specific [place] (1.005-1.025) Urine Protein (Neg-Trace) mg/dL Urine Ketones (Negative) mg/dL Urine Blood (Negative) Urine Nitrite (Negative) Urine Bilirubin (Negative) Urine Urobilinogen (Up to 0.2) mg/dL Ur Leukocyte Esterase (Negative) Urine Glucose (Negative) mg/dL Urine Opiates Screen (Negative) Urine Methadone Screen (Negative) Ur Barbiturates Screen (Negative) Ur Tricyclics Screen (Negative) Ur Amphetamines Screen (Negative) U Benzodiazepines Scrn (Negative) Urine Cocaine Screen (Negative) Ur THC Screen (Negative) Ethyl Alcohol (<10) mg/dL Range/Units 09/08/24 09/08/24 09/08/24 17:05 17:23 18:18 WBC (4.4-10.8) 10^3/uL RBC (3.93-5.22) 10^6/uL Hgb (11.2-15.7) g/dL Hct (36.0-46.0) % MCV (80-95) fL MCH (27.0-33.0) pg MCHC (32.0-36.0) % RDW (11.7-14.6) % Plt Count (130-400) 10^3/uL MPV (8.0-11.0) fL Immature Gran % % Neutrophils % % Lymphocytes % % Monocytes % % Eosinophils % % Basophils % % Nucleated RBC % (0.0-0.3) % Absolute Neutrophils (1.2-6.7) 10^3/uL Absolute Lymphocytes (1.2-3.4) 10^3/uL Absolute Monocytes (0.1-0.8) 10^3/uL Absolute Eosinophils (0.0-0.7) 10^3/uL Absolute Basophils (0.0-0.2) 10^3/uL ABG Sample Site ABG pH (7.35-7.45) ABG pCO2 (35-45) mmHg ABG pO2 (80-105) mmHg ABG HCO3 (22-26) mmol/L ABG Total CO2 (23-27) mmol/L ABG O2 Saturation (95-98) % ABG Base Excess (-2-3) mmol/L VBG pH VBG pCO2 VBG pO2 VBG HCO3 VBG Total CO2 VBG O2 Saturation VBG Base Excess VBG Lactate (0.6-1.4) mmol/L Sodium (136-145) mmol/L Potassium (3.5-5.1) mmol/L Chloride (98-107) mmol/L Carbon Dioxide (21.0-32.0) mmol/L Anion Gap (3-11) mmol/L BUN (7-18) mg/dL Creatinine (0.55-1.02) mg/dL Est GFR (CKD-EPI 2020) (mL/min/1.73m2) Glucose (74-106) mg/dL Calcium (8.5-10.1) mg/dL Magnesium (1.8-2.4) mg/dL Total Bilirubin (0.2-1.0) mg/dL AST (15-37) U/L ALT (14-59) U/L Alkaline Phosphatase (46-116) U/L Creatine Kinase (26-192) U/L Troponin I (<or=51) ng/L 25 Cancelled NT-Pro-B Natriuret Pep (<300) pg/mL Total Protein (6.4-8.2) g/dL Albumin (3.4-5.0) g/dL Lipase (16-77) U/L TSH (0.36-3.74) uIU/mL Free T4 (0.76-1.46) ng/dL Urine Color (Yellow) Yellow Urine Clarity (Clear) Clear Urine pH (5-8) 8.5 H Ur Specific [place] (1.005-1.025) 1.020 Urine Protein (Neg-Trace) mg/dL Negative Urine Ketones (Negative) mg/dL 80 H Urine Blood (Negative) Negative Urine Nitrite (Negative) Negative Urine Bilirubin (Negative) Negative Urine Urobilinogen (Up to 0.2) mg/dL 0.2 Ur Leukocyte Esterase (Negative) Negative Urine Glucose (Negative) mg/dL Negative Urine Opiates Screen (Negative) Negative Urine Methadone Screen (Negative) Negative Ur Barbiturates Screen (Negative) Negative Ur Tricyclics Screen (Negative) Negative Ur Amphetamines Screen (Negative) Negative U Benzodiazepines Scrn (Negative) Negative Urine Cocaine Screen (Negative) Negative Ur THC Screen (Negative) Negative Ethyl Alcohol (<10) mg/dL Range/Units 09/08/24 09/08/24 09/08/24 18:54 18:54 19:30 WBC (4.4-10.8) 10^3/uL RBC (3.93-5.22) 10^6/uL Hgb (11.2-15.7) g/dL Hct (36.0-46.0) % MCV (80-95) fL MCH (27.0-33.0) pg MCHC (32.0-36.0) % RDW (11.7-14.6) % Plt Count (130-400) 10^3/uL MPV (8.0-11.0) fL Immature Gran % % Neutrophils % % Lymphocytes % % Monocytes % % Eosinophils % % Basophils % % Nucleated RBC % (0.0-0.3) % Absolute Neutrophils (1.2-6.7) 10^3/uL Absolute Lymphocytes (1.2-3.4) 10^3/uL Absolute Monocytes (0.1-0.8) 10^3/uL Absolute Eosinophils (0.0-0.7) 10^3/uL Absolute Basophils (0.0-0.2) 10^3/uL ABG Sample Site ABG pH (7.35-7.45) ABG pCO2 (35-45) mmHg ABG pO2 (80-105) mmHg ABG HCO3 (22-26) mmol/L ABG Total CO2 (23-27) mmol/L ABG O2 Saturation (95-98) % ABG Base Excess (-2-3) mmol/L VBG pH VBG pCO2 VBG pO2 VBG HCO3 VBG Total CO2 VBG O2 Saturation VBG Base Excess VBG Lactate (0.6-1.4) mmol/L Cancelled 3.4 H* Sodium (136-145) mmol/L 134 L Potassium (3.5-5.1) mmol/L 2.5 L* Chloride (98-107) mmol/L 91 L Carbon Dioxide (21.0-32.0) mmol/L 29.1 Anion Gap (3-11) mmol/L 13.9 H BUN (7-18) mg/dL 9 Creatinine (0.55-1.02) mg/dL 1.0 Est GFR (CKD-EPI 2020) (mL/min/1.73m2) 68.63 Glucose (74-106) mg/dL 119 H Calcium (8.5-10.1) mg/dL 8.6 Magnesium (1.8-2.4) mg/dL Total Bilirubin (0.2-1.0) mg/dL AST (15-37) U/L ALT (14-59) U/L Alkaline Phosphatase (46-116) U/L Creatine Kinase (26-192) U/L 246 H Cancelled Troponin I (<or=51) ng/L 51 NT-Pro-B Natriuret Pep (<300) pg/mL 63 Total Protein (6.4-8.2) g/dL Albumin (3.4-5.0) g/dL Lipase (16-77) U/L TSH (0.36-3.74) uIU/mL Free T4 (0.76-1.46) ng/dL Urine Color (Yellow) Urine Clarity (Clear) Urine pH (5-8) Ur Specific [place] (1.005-1.025) Urine Protein (Neg-Trace) mg/dL Urine Ketones (Negative) mg/dL Urine Blood (Negative) Urine Nitrite (Negative) Urine Bilirubin (Negative) Urine Urobilinogen (Up to 0.2) mg/dL Ur Leukocyte Esterase (Negative) Urine Glucose (Negative) mg/dL Urine Opiates Screen (Negative) Urine Methadone Screen (Negative) Ur Barbiturates Screen (Negative) Ur Tricyclics Screen (Negative) Ur Amphetamines Screen (Negative) U Benzodiazepines Scrn (Negative) Urine Cocaine Screen (Negative) Ur THC Screen (Negative) Ethyl Alcohol (<10) mg/dL < 3.0 Quality:SDOH Health Related Social Needs: No Data to Display PFSH All Active Problems (Updated 09/08/24 @ 21:02 by Reji Schumacher) Secondary rhabdomyolysis (Acute) Post-surgical hypothyroidism (Acute) Depression with anxiety (Chronic) Acute hyperventilation (Acute) HTN (hypertension) (Chronic) Hypokalemia (Acute) Thyroid nodule (Chronic) Medical History (Updated 09/08/24 @ 21:02 by Reji Schumacher) History of depression Neck swelling Acute sinusitis Social History Smoking/Tobacco Use Status: Former Tobacco Use Tobacco: How many years used: 25 Smoking risk assessment performed?: Yes Alcohol Intake: current Alcohol Intake frequency: a few times a week Drug use: Never Substance use type: does not use Housing: house Do you feel safe at home: Yes Do you feel safe in your relationship?: Yes
[2024-09-08 15:48] LABS: Abs Immature Grans 0.02 10^3/uL (0.0-0.06); Absolute Basophil Count 0.03 10^3/uL (0.0-0.2); Absolute Eosinophil Count 0.06 10^3/uL (0.0-0.7); Absolute Lymphocyte Count 4.16 10^3/uL (1.2-3.4); Absolute Monocyte Count 1.18 10^3/uL (0.1-0.8); Basophils % 0.3 %; Eosinophils % 0.7 %; HGB 15.2 g/dL (11.2-15.7); Immature Grans % 0.2 %; Lymphocytes % 45.5 %; MCH 31.3 pg (27.0-33.0); MCHC 35.3 % (32.0-36.0); MCV 89 fL (80-95); MPV 9.6 fL (8.0-11.0); Monocytes % 12.9 %; Neutrophils % 40.4 %; Platelet Count 309 10^3/uL (130-400); RBC 4.86 10^6/uL (3.93-5.22); RDW 11.8 % (11.7-14.6); RDW-SD 37.6 fL; WBC 9.15 10^3/uL (4.4-10.8)
[2024-09-08 15:50] LABS: Lactate 9.8 mmol/L (0.6-1.4)
[2024-09-08] MEDS: Normal Saline 1,000 ML 1000 ML IV (15:50)
[2024-09-08 15:53] LABS: BE 3 mmol/L (-2-3); HCO3 23 mmol/L (22-26); Site Left Radial; pCO2 20 mmHg (35-45); pO2 114 mmHg (80-105); sO2 > 99 % (95-98)
[2024-09-08 15:55] LABS: pH 7.68 (7.35-7.45)
[2024-09-08 16:23] LABS: ALT 14 U/L (14-59); AST 18 U/L (15-37); Albumin 4.5 g/dL (3.4-5.0); Alkaline Phosphatase 96 U/L (46-116); Anion Gap 22.9 mmol/L (3-11); BUN 9 mg/dL (7-18); Bilirubin, Total 1.08 mg/dL (0.2-1.0); CO2 24.1 mmol/L (21.0-32.0); CREATININE 1.1 mg/dL (0.55-1.02); Chloride 86 mmol/L (98-107); Creatine Kinase 295 U/L (26-192); Estimated GFR 61.22 (mL/min/1.73m2); Glucose 143 mg/dL (74-106); Lipase 35 U/L (16-77); Sodium 133 mmol/L (136-145); TSH (W/Ref FT4) 0.03 uIU/mL (0.36-3.74); Total Protein 8.3 g/dL (6.4-8.2); Troponin I 4 ng/L (<or=51)
[2024-09-08 16:30] LABS: Calcium 8.5 mg/dL (8.5-10.1)
[2024-09-08 16:33] LABS: Potassium 2.5 mmol/L (3.5-5.1)
[2024-09-08] MEDS: LORazepam 2 MG/ML VIAL 1 MG IVP (16:37)
[2024-09-08] MEDS: POTASSIUM CHLORIDE 20 MEQ/100 ML BAG 50 MEQ IV_INF ×2 (16:47→18:51)
[2024-09-08 16:49] LABS: FREE T4 2.38 ng/dL (0.76-1.46)
[2024-09-08] MEDS: MAGNESIUM SULFATE 1 GM/100 ML BAG IV_INF (17:01)
[2024-09-08] MEDS: Calcium Carbonate 1.5 GM TAB 3 GM PO (17:10)
[2024-09-08 17:33] LABS: Troponin I 25 ng/L (<or=51)
[2024-09-08 17:44] LABS: Bilirubin Negative (Negative); Blood Negative (Negative); Clarity Clear (Clear); Glucose Negative (Negative); Ketones 80 mg/dL (Negative); Leukocyte Esterase Negative (Negative); Nitrite Negative (Negative); Urobilinogen 0.2 mg/dL (Up to 0.2); pH 8.5 (5-8)
--- NOTE | 2024-09-08 18:30 | RT.EKG_ITS ---
APPROVED REPORT Exam: Resting ECG Reason for Exam: chest discomfort Patient Location: E HR:142 bpm ECG Measurements Heart Rate 142 AXIS SC 129 P 30 QRSd 93 QRS 42 QT 320 T -57 QTc 493 Conclusion Sinus tachycardia 142 significant artifact
--- NOTE | 2024-09-08 19:15 | RT.EKG_ITS ---
APPROVED REPORT Exam: Resting ECG Reason for Exam: hypokalemia Patient Location: E HR:95 bpm ECG Measurements Heart Rate 95 AXIS MT 149 P 67 QRSd 93 QRS 42 QT 464 T 58 QTc 582 Conclusion Sinus rhythm. 95 no stemi long QTC 582
[2024-09-08 19:23] LABS: Creatine Kinase 246 U/L (26-192); Troponin I 51 ng/L (<or=51)
--- NOTE | 2024-09-08 19:26 | DI.CT_ITS ---
Exam(s) CT CHEST PE CTA EXAM: CT CHEST PE CTA CLINICAL HISTORY: ?PE. TECHNIQUE: Imaging Protocol: Axial CT angiography was performed with multi-slice acquisition and mu lti-planar and/or 3D reconstructions. Computer aided detection (CAD) was utilized. CONTRAST MATERIAL: Intravenous: Omnipaque 350 contrast volume:100 mL COMPARISON: CR XR PORTABLE CHEST AP from 05/08/2024 FINDINGS: Tracheobronchial tree: Patent where visualized. No bronchiectasis. Pulmonary parenchyma: No consolidation or dominant measurable mass. No architectural distortion. Pulmonary Arteries: No evidence of filling defect to suggest pulmonary emboli. Mediastinum and Thu: No dominant adenopathy or fluid collection. The esophagus is unremarkable. Visualized thyroid gland: There are surgical clips seen in the thyroid bed. Pleura: No effusion or pneumothorax. Heart: The heart is not dilated. No coronary artery calcifications are seen. No pericardial effusion. Aorta: Thoracic aorta non-dilated. No evidence of dissection. Upper abdomen: Unremarkable. Soft tissues: Unremarkable. Bones: Within normal limits for the patient's age. IMPRESSION: No evidence of pulmonary embolism, thoracic aortic dissection or aneurysm. RADIATION DOSE DELIVERED: 98.93mGy.cm Total DLP DATA REPOSITORY: All CT scans at this facility are submitted to the National Radiology Data Registry (NRDR) Dose Index Registry (DIR) with the [employer] ([employer]). RADIATION OPTIMIZATION: All CT scans at this facility use at least one of these dose optimization te chniques: automated exposure control; mA and/or kV adjustment per patient size (includes targeted exa ms where dose is matched to clinical indication); or iterative reconstruction.
[2024-09-08] MEDS: Potassium Chloride 20 MEQ TABCR 40 MEQ PO (19:33)
[2024-09-08 19:42] LABS: Lactate 3.4 mmol/L (0.6-1.4)
[2024-09-08 19:49] LABS: Anion Gap 13.9 mmol/L (3-11); BUN 9 mg/dL (7-18); CO2 29.1 mmol/L (21.0-32.0); Calcium 8.6 mg/dL (8.5-10.1); Chloride 91 mmol/L (98-107); Estimated GFR 68.63 (mL/min/1.73m2); Glucose 119 mg/dL (74-106); Sodium 134 mmol/L (136-145)
[2024-09-08 19:53] LABS: Potassium 2.5 mmol/L (3.5-5.1)
[2024-09-08 20:14] LABS: *AMPHETAMINES SCREEN URINE Negative (Negative); *BARBITURATES SCREEN URINE Negative (Negative); *BENZODIAZEPINES SCREEN URINE Negative (Negative); Cannabinoids THC Negative (Negative); Cocaine Screen,Urine Negative (Negative); METHADONE URINE SCREEN Negative (Negative); OPIATES URINE SCREEN Negative (Negative)
[2024-09-08 20:15] LABS: Tricyclic Antidepressants Negative (Negative)
[2024-09-08 20:16] LABS: ETHANOL BLOOD < 3.0 mg/dL (<10); NT-proBNP 63 pg/mL (<300)
--- NOTE | 2024-09-08 20:44 | HPE_ITS ---
Date of service: 09/08/24 Time of Service: 20:44 Assessment and Plan Assessment and plan (1) Acute hyperventilation: Start date: 09/08/24 Status: Acute Assessment and plan: This is a 49-year-old lady who presented with muscle spasms and symptoms of hyperventilation with lab abnormalities consistent with the same. She also has had a recent total thyroidectomy with suppressed TSH on oral supplementation. [facility] endocrinology advise holding thyroid supplement and treating her acute presentation. She will be repleted with IV potassium and monitored for dysrhythmias with QT prolongation. She is less anxious now that she is in the hospital and responded to fluid resuscitation for lactic acidosis and increased anion gap. Follow-up abnormal lab and continue repletion of electrolytes as needed. She should correct with IV hydration and potassium repletion and already is feeling better in the hospital with treatment. She may want to consider increase psychological evaluation and treatment. SSRI should be used with caution with her QT prolongation but this may correct with correction of her acute metabolic changes. She is a full code. (2) Hypokalemia: Start date: 09/08/24 Status: Acute Assessment and plan: On chronic hydrochlorothiazide for hypertension and this may be dietary with recent dietary changes. IV and oral supplementation with probable long-term oral supplementation while on hydrochlorothiazide. (3) Secondary rhabdomyolysis: Status: Acute Assessment and plan: IV hydration and follow-up CPK in the morning. Her muscle spasm has already improved. (4) Post-surgical hypothyroidism: Status: Chronic Assessment and plan: Suppressed TSH with patient to hold oral supplementation until follow-up with endocrinology and oncology. (5) Thyroid nodule: Status: Chronic Assessment and plan: Patient gives history of this thyroid nodule being positive for thyroid cancer now status post total thyroidectomy. Follow-up with [facility]. (6) HTN (hypertension): Status: Chronic Assessment and plan: On hydrochlorothiazide with hypokalemia. Continue the same medication with oral potassium supplement if needed. This has been controlled on her present medical therapy. Qualifiers: Hypertension type: primary hypertension Qualified Code(s): I10 - Essential (primary) hypertension (7) Depression with anxiety: Status: Chronic Assessment and plan: Patient appears to have acute decompensation with poor coping and increased anxiety with hyperventilation. Long-term he should seek further evaluation by her PCP and possible medical therapy. She is not on antidepressants or medication for anxiety presently. History of Present Illness History of Present Illness Chief Complaint: Diffuse muscle spasming with pain. Narrative: This is a 49-year-old female patient who is very well up to 1 year ago with thyroid nodule having positive FNA for cancer the first of the year 2023 and now status post total thyroidectomy this summer. She also had hypertension which was initiated on treatment with HCTZ around the same time of the first of the year 2023. He has not been monitoring her potassium levels since on this medication. She has been on a very strict diet for 2 weeks prior to radioactive iodine therapy for her thyroid cancer and he also has been having increased stress recently with poor coping and increased depression. She began to have an acute onset of severe muscle cramping and increased anxiety with depression. She has been tearful. Today is her grandson's first birthday. She is not on medical therapy for depression. She presented to the ED with severe hypokalemia and other abnormalities consistent with hyperventilation and respiratory alkalosis with some urinary alkalosis as compensation along with mildly elevated CPKs and troponins which are trending slightly up though she is not having chest pain or any EKG changes with sinus rhythm and no acute ST-T changes but QT prolongation. She was given IV and oral potassium repletion with potassium only rising by 0.5 mmol/L. There was a 2.5 mmol/L upon presentation now is at 3.0 mmol/L. She will be admitted to [facility] for continued monitoring of her abnormal lab continued IV hydration with lactic acidosis and elevated anion gap along with need for continued IV potassium supplement. With hydrochlorothiazide for treating her hypertension, she may need long-term potassium supplementation orally. Magnesium was normal. She is a full code. Review of Systems Narrative: 13 point review of systems otherwise unrevealing or stable. PFSH All Active Problems (Updated 09/09/24 @ 05:55 by Reji Schumacher) Secondary rhabdomyolysis (Acute) Post-surgical hypothyroidism (Chronic) Depression with anxiety (Chronic) Acute hyperventilation (Acute) HTN (hypertension) (Chronic) Hypokalemia (Acute) Thyroid nodule (Chronic) Medical History (Updated 09/09/24 @ 05:55 by Reji Schumacher) History of depression Neck swelling Acute sinusitis Social History Smoking/Tobacco Use Status: Former Tobacco Use Tobacco: How many years used: 25 Smoking risk assessment performed?: Yes Alcohol Intake: current Alcohol Intake frequency: a few times a week Drug use: Never Substance use type: does not use Housing: house Do you feel safe at home: Yes Do you feel safe in your relationship?: Yes Meds Allergies and Home Medications Allergies Allergy/AdvReac Type Severity Reaction Status Date / Time No Known Allergies Allergy Verified 09/08/24 15:19 Home Medications ?Medication ?Instructions ?Recorded ?Confirmed ?Type fluoxetine 10 mg capsule (Prozac) 10 mg PO DAILY 12/06/23 09/08/24 History calcium carbonate (Calcium 600) 1,200 mg PO BID 05/08/24 09/08/24 History hydrochlorothiazide 25 mg tablet 25 mg PO DAILY 05/08/24 09/08/24 History levothyroxine 150 mcg tablet 150 mcg PO ONCE 05/08/24 09/08/24 History Exam Narrative Exam Narrative: General: Patient is alert and oriented x 3 and slightly anxious but not tearful and feeling better at the time I examined her. She is in no acute distress. She is speaking normally with good eye contact. HEENT: Normocephalic, eyes with pupils equal and react to light symmetrically, extraocular movement intact and sclera anicteric. Neck: Clean surgical scar at the base of her neck, supple and no JVD. Back: Stooped posture without CVA tenderness. Lungs: Fair aeration clear to auscultation percussion. Breast: Exam deferred. Heart: Regular rate and rhythm with no murmurs gallops appreciated. Abdomen: Normal contour, soft and nontender to palpation with no palpable hepatosplenomegaly. Bowel sounds positive all quadrants. Genitalia/rectal: Exam deferred. Extremities: No clubbing, cyanosis or pitting edema. Peripheral pulses intact. Neuro: Cranial nerves II through XII gross intact, no focalizing motor deficits and no tremor. Psych: Anxious with normal mood at the time of exam, no normal thought processes. Remote and recent memory intact. Results Imaging Imaging Studies: Exam: CTA Chest With Contrast Exam date and time: 09/08/2024 8:45 PM Age: 49 years old Clinical indication: Shortness of breath; Additional info: ? Pe TECHNIQUE: Imaging protocol: Computed tomographic angiography of the chest with contrast. Exam focused on the arteries. 3D rendering (Not supervised by radiologist): MIP and/or 3D reconstructed images were created by the technologist. Contrast material: OMNI 350; Contrast volume: 100 ml; Contrast route: INTRAVENOUS (IV); COMPARISON: CR XR PORTABLE CHEST AP 05/08/2024 1:54 PM FINDINGS: Pulmonary arteries: No evidence of pulmonary embolism. Aorta: Unremarkable. No aortic aneurysm. No aortic dissection. Trachea: The central airways clear. Lungs: Linear bibasilar opacities most consistent with subsegmental atelectasis. Pleural spaces: Unremarkable. No pneumothorax. No pleural effusion. Heart: No cardiomegaly or pericardial effusion. Lymph nodes: No axillary adenopathy. Bones/joints: No acute osseous abnormality. Soft tissues: Soft tissues are unremarkable as visualized. No chest wall lesions. IMPRESSION: No evidence of pulmonary embolism. Labs 09/08/24 15:35 09/09/24 00:45 Labs: Laboratory Results - last 24 hr 09/08/24 09/08/24 09/08/24 15:18 15:35 15:50 WBC 9.15 RBC 4.86 Hgb 15.2 Hct 43.0 MCV 89 MCH 31.3 MCHC 35.3 RDW 11.8 Plt Count 309 MPV 9.6 Immature Gran % 0.2 Neutrophils % 40.4 Lymphocytes % 45.5 Monocytes % 12.9 Eosinophils % 0.7 Basophils % 0.3 Nucleated RBC % 0.0 Absolute Neutrophils 3.70 Absolute Lymphocytes 4.16 H Absolute Monocytes 1.18 H Absolute Eosinophils 0.06 Absolute Basophils 0.03 ABG Sample Site Left Radial ABG pH 7.68 H* ABG pCO2 20 L ABG pO2 114 H ABG HCO3 23 ABG Total CO2 ABG O2 Saturation > 99 H ABG Base Excess 3 VBG pH Cancelled VBG pCO2 Cancelled VBG pO2 Cancelled VBG HCO3 Cancelled VBG Total CO2 Cancelled VBG O2 Saturation Cancelled VBG Base Excess Cancelled VBG Lactate 9.8 H* Sodium 133 L Potassium 2.5 L* Chloride 86 L Carbon Dioxide 24.1 Anion Gap 22.9 H BUN 9 Creatinine 1.1 H Est GFR (CKD-EPI 2020) 61.22 Glucose 143 H Calcium 8.5 Magnesium 2.0 Total Bilirubin 1.08 H AST 18 ALT 14 Alkaline Phosphatase 96 Creatine Kinase 295 H Troponin I 4 NT-Pro-B Natriuret Pep Total Protein 8.3 H Albumin 4.5 Lipase 35 TSH 0.03 L Free T4 2.38 H Urine Color Urine Clarity Urine pH Ur Specific [place] Urine Protein Urine Ketones Urine Blood Urine Nitrite Urine Bilirubin Urine Urobilinogen Ur Leukocyte Esterase Urine Glucose Urine Opiates Screen Urine Methadone Screen Ur Barbiturates Screen Ur Tricyclics Screen Ur Amphetamines Screen U Benzodiazepines Scrn Urine Cocaine Screen Ur THC Screen Ethyl Alcohol 09/08/24 09/08/24 09/08/24 17:05 17:23 18:18 WBC RBC Hgb Hct MCV MCH MCHC RDW Plt Count MPV Immature Gran % Neutrophils % Lymphocytes % Monocytes % Eosinophils % Basophils % Nucleated RBC % Absolute Neutrophils Absolute Lymphocytes Absolute Monocytes Absolute Eosinophils Absolute Basophils ABG Sample Site ABG pH ABG pCO2 ABG pO2 ABG HCO3 ABG Total CO2 ABG O2 Saturation ABG Base Excess VBG pH VBG pCO2 VBG pO2 VBG HCO3 VBG Total CO2 VBG O2 Saturation VBG Base Excess VBG Lactate Sodium Potassium Chloride Carbon Dioxide Anion Gap BUN Creatinine Est GFR (CKD-EPI 2020) Glucose Calcium Magnesium Total Bilirubin AST ALT Alkaline Phosphatase Creatine Kinase Troponin I 25 Cancelled NT-Pro-B Natriuret Pep Total Protein Albumin Lipase TSH Free T4 Urine Color Yellow Urine Clarity Clear Urine pH 8.5 H Ur Specific [place] 1.020 Urine Protein Negative Urine Ketones 80 H Urine Blood Negative Urine Nitrite Negative Urine Bilirubin Negative Urine Urobilinogen 0.2 Ur Leukocyte Esterase Negative Urine Glucose Negative Urine Opiates Screen Negative Urine Methadone Screen Negative Ur Barbiturates Screen Negative Ur Tricyclics Screen Negative Ur Amphetamines Screen Negative U Benzodiazepines Scrn Negative Urine Cocaine Screen Negative Ur THC Screen Negative Ethyl Alcohol 09/08/24 09/08/24 09/08/24 18:54 18:54 19:30 WBC RBC Hgb Hct MCV MCH MCHC RDW Plt Count MPV Immature Gran % Neutrophils % Lymphocytes % Monocytes % Eosinophils % Basophils % Nucleated RBC % Absolute Neutrophils Absolute Lymphocytes Absolute Monocytes Absolute Eosinophils Absolute Basophils ABG Sample Site ABG pH ABG pCO2 ABG pO2 ABG HCO3 ABG Total CO2 ABG O2 Saturation ABG Base Excess VBG pH VBG pCO2 VBG pO2 VBG HCO3 VBG Total CO2 VBG O2 Saturation VBG Base Excess VBG Lactate Cancelled 3.4 H* Sodium 134 L Potassium 2.5 L* Chloride 91 L Carbon Dioxide 29.1 Anion Gap 13.9 H BUN 9 Creatinine 1.0 Est GFR (CKD-EPI 2020) 68.63 Glucose 119 H Calcium 8.6 Magnesium Total Bilirubin AST ALT Alkaline Phosphatase Creatine Kinase 246 H Cancelled Troponin I 51 NT-Pro-B Natriuret Pep 63 Total Protein Albumin Lipase TSH Free T4 Urine Color Urine Clarity Urine pH Ur Specific [place] Urine Protein Urine Ketones Urine Blood Urine Nitrite Urine Bilirubin Urine Urobilinogen Ur Leukocyte Esterase Urine Glucose Urine Opiates Screen Urine Methadone Screen Ur Barbiturates Screen Ur Tricyclics Screen Ur Amphetamines Screen U Benzodiazepines Scrn Urine Cocaine Screen Ur THC Screen Ethyl Alcohol < 3.0 Last Vital Signs Temp 36.2 C L 09/08/24 15:15 Pulse 91 H 09/08/24 19:46 Resp 16 09/08/24 19:50 BP 126/78 09/08/24 19:46 Pulse Ox 100 09/08/24 19:50 Time Spent Time spent with Patient: >75 minutes Time was spent: preparing to see the patient(eg.review tests), obtaining and/or reviewing separately otained hiistory, ordering medications,tests, procedures, referring, communicating with other health wound care technician, indepentently interpreting results and counseling the patient
[2024-09-08] MEDS: Normal Saline - Diluent 50 ML VIAL IJ (20:47)
[2024-09-08] MEDS: Omnipaque 350 MG/ML 100 ML BTL IJ (20:48)
--- NOTE | 2024-09-08 22:02 | DI.VRAD_ITS ---
PROCEDURE INFORMATION: Exam: CTA Chest With Contrast Exam date and time: 09/08/2024 8:45 PM Age: 49 years old Clinical indication: Shortness of breath; Additional info: ? Pe TECHNIQUE: Imaging protocol: Computed tomographic angiography of the chest with contrast. Exam focused on the arteries. 3D rendering (Not supervised by radiologist): MIP and/or 3D reconstructed images were created by the technologist. Contrast material: OMNI 350; Contrast volume: 100 ml; Contrast route: INTRAVENOUS (IV); COMPARISON: CR XR PORTABLE CHEST AP 05/08/2024 1:54 PM FINDINGS: Pulmonary arteries: No evidence of pulmonary embolism. Aorta: Unremarkable. No aortic aneurysm. No aortic dissection. Trachea: The central airways clear. Lungs: Linear bibasilar opacities most consistent with subsegmental atelectasis. Pleural spaces: Unremarkable. No pneumothorax. No pleural effusion. Heart: No cardiomegaly or pericardial effusion. Lymph nodes: No axillary adenopathy. Bones/joints: No acute osseous abnormality. Soft tissues: Soft tissues are unremarkable as visualized. No chest wall lesions. IMPRESSION: No evidence of pulmonary embolism. Dictated and Authenticated by: Berenice Toscano MD. Ordering:NANCY Rogers MD
[2024-09-08 22:30] LABS: Ionized Calcium 0.87 mmol/L (1.14-1.35)
--- NOTE | 2024-09-08 22:42 | W.PC.ACHO ---
Registration Status: Primary Language: Preferred Language: ED Information & Data Chief Complaint GenMedical 09/08/24 15:30 Triage Note thyroid out, hx thyroid 09/08/24 15:15 cancer, flushed, hot, arms contracted, sudden decreased mobility, tachypnea Subjective tachypnea 09/08/24 15:18 Medical / Surgical History (Last Updated 09/08/24 @ 20:54 by Reji Schumacher) History of depression Neck swelling Acute sinusitis Most Recent Vital Signs Temperature 36.2 C L 09/08/24 15:15 Temperature Source Oral 09/08/24 15:15 Pulse 80 09/08/24 21:46 Pulse 80 09/08/24 21:50 Respiratory Rate 13 09/08/24 21:50 Respiratory Depth Deep 09/08/24 17:25 Respiratory Pattern Tachypnea 09/08/24 17:25 Blood Pressure 124/72 09/08/24 21:46 Blood Pressure Mean 86 09/08/24 21:46 Pulse Oximetry 92 09/08/24 21:50 Allergies No Known Allergies Allergy (Verified 09/08/24 15:19) Active Medications Generic Name Dose Route Start Last Admin Trade Name Freq PRN Reason Stop Dose Admin Iohexol 100 ml 09/08/24 21:00 09/08/24 20:48 Omnipaque 350 Mg/Ml 100 Ml Btl IJ 10/08/24 23:59 100 ml DIRECTED MIA Administration Sodium Chloride 50 ml 09/08/24 21:00 09/08/24 20:47 Normal Saline - Diluent 50 Ml Vial IJ 50 ml .FOR DI USE MIA Administration IV IV Catheter Type [Left Peripheral IV Antecubital] IV Catheter Gauge [Left 18 Antecubital] Diagnostics 09/08/24 09/08/24 09/08/24 Range/Units 19:30 18:54 18:54 WBC (4.4-10.8) 10^3/uL RBC (3.93-5.22) 10^6/uL Hgb (11.2-15.7) g/dL Hct (36.0-46.0) % MCV (80-95) fL MCH (27.0-33.0) pg MCHC (32.0-36.0) % RDW (11.7-14.6) % Plt Count (130-400) 10^3/uL MPV (8.0-11.0) fL Immature Gran % % Neutrophils % % Lymphocytes % % Monocytes % % Eosinophils % % Basophils % % Nucleated RBC % (0.0-0.3) % Absolute Neutrophils (1.2-6.7) 10^3/uL Absolute Lymphocytes (1.2-3.4) 10^3/uL Absolute Monocytes (0.1-0.8) 10^3/uL Absolute Eosinophils (0.0-0.7) 10^3/uL Absolute Basophils (0.0-0.2) 10^3/uL ABG Sample Site ABG pH (7.35-7.45) ABG pCO2 (35-45) mmHg ABG pO2 (80-105) mmHg ABG HCO3 (22-26) mmol/L ABG Total CO2 (23-27) mmol/L ABG O2 Saturation (95-98) % ABG Base Excess (-2-3) mmol/L VBG pH VBG pCO2 VBG pO2 VBG HCO3 VBG Total CO2 VBG O2 Saturation VBG Base Excess VBG Lactate 3.4 H* Cancelled (0.6-1.4) mmol/L Sodium 134 L (136-145) mmol/L Potassium 2.5 L* (3.5-5.1) mmol/L Chloride 91 L (98-107) mmol/L Carbon Dioxide 29.1 (21.0-32.0) mmol/L Anion Gap 13.9 H (3-11) mmol/L BUN 9 (7-18) mg/dL Creatinine 1.0 (0.55-1.02) mg/dL Est GFR (CKD-EPI 2020) 68.63 (mL/min/1.73m2) Glucose 119 H (74-106) mg/dL Calcium 8.6 (8.5-10.1) mg/dL Ionized Calcium Magnesium (1.8-2.4) mg/dL Total Bilirubin (0.2-1.0) mg/dL AST (15-37) U/L ALT (14-59) U/L Alkaline Phosphatase (46-116) U/L Creatine Kinase Cancelled 246 H (26-192) U/L Troponin I 51 (<or=51) ng/L NT-Pro-B Natriuret Pep 63 (<300) pg/mL Total Protein (6.4-8.2) g/dL Albumin (3.4-5.0) g/dL Lipase (16-77) U/L TSH (0.36-3.74) uIU/mL Free T4 (0.76-1.46) ng/dL PTH Related Peptide Urine Color (Yellow) Urine Clarity (Clear) Urine pH (5-8) Ur Specific [place] (1.005-1.025) Urine Protein (Neg-Trace) mg/dL Urine Ketones (Negative) mg/dL Urine Blood (Negative) Urine Nitrite (Negative) Urine Bilirubin (Negative) Urine Urobilinogen (Up to 0.2) mg/dL Ur Leukocyte Esterase (Negative) Urine Glucose (Negative) mg/dL Urine Opiates Screen (Negative) Urine Methadone Screen (Negative) Ur Barbiturates Screen (Negative) Ur Tricyclics Screen (Negative) Ur Amphetamines Screen (Negative) U Benzodiazepines Scrn (Negative) Urine Cocaine Screen (Negative) Ur THC Screen (Negative) Ethyl Alcohol < 3.0 (<10) mg/dL 09/08/24 09/08/24 09/08/24 Range/Units 18:18 17:23 17:10 WBC (4.4-10.8) 10^3/uL RBC (3.93-5.22) 10^6/uL Hgb (11.2-15.7) g/dL Hct (36.0-46.0) % MCV (80-95) fL MCH (27.0-33.0) pg MCHC (32.0-36.0) % RDW (11.7-14.6) % Plt Count (130-400) 10^3/uL MPV (8.0-11.0) fL Immature Gran % % Neutrophils % % Lymphocytes % % Monocytes % % Eosinophils % % Basophils % % Nucleated RBC % (0.0-0.3) % Absolute Neutrophils (1.2-6.7) 10^3/uL Absolute Lymphocytes (1.2-3.4) 10^3/uL Absolute Monocytes (0.1-0.8) 10^3/uL Absolute Eosinophils (0.0-0.7) 10^3/uL Absolute Basophils (0.0-0.2) 10^3/uL ABG Sample Site ABG pH (7.35-7.45) ABG pCO2 (35-45) mmHg ABG pO2 (80-105) mmHg ABG HCO3 (22-26) mmol/L ABG Total CO2 (23-27) mmol/L ABG O2 Saturation (95-98) % ABG Base Excess (-2-3) mmol/L VBG pH VBG pCO2 VBG pO2 VBG HCO3 VBG Total CO2 VBG O2 Saturation VBG Base Excess VBG Lactate (0.6-1.4) mmol/L Sodium (136-145) mmol/L Potassium (3.5-5.1) mmol/L Chloride (98-107) mmol/L Carbon Dioxide (21.0-32.0) mmol/L Anion Gap (3-11) mmol/L BUN (7-18) mg/dL Creatinine (0.55-1.02) mg/dL Est GFR (CKD-EPI 2020) (mL/min/1.73m2) Glucose (74-106) mg/dL Calcium (8.5-10.1) mg/dL Ionized Calcium Pending Magnesium (1.8-2.4) mg/dL Total Bilirubin (0.2-1.0) mg/dL AST (15-37) U/L ALT (14-59) U/L Alkaline Phosphatase (46-116) U/L Creatine Kinase (26-192) U/L Troponin I Cancelled (<or=51) ng/L NT-Pro-B Natriuret Pep (<300) pg/mL Total Protein (6.4-8.2) g/dL Albumin (3.4-5.0) g/dL Lipase (16-77) U/L TSH (0.36-3.74) uIU/mL Free T4 (0.76-1.46) ng/dL PTH Related Peptide Urine Color Yellow (Yellow) Urine Clarity Clear (Clear) Urine pH 8.5 H (5-8) Ur Specific [place] 1.020 (1.005-1.025) Urine Protein Negative (Neg-Trace) mg/dL Urine Ketones 80 H (Negative) mg/dL Urine Blood Negative (Negative) Urine Nitrite Negative (Negative) Urine Bilirubin Negative (Negative) Urine Urobilinogen 0.2 (Up to 0.2) mg/dL Ur Leukocyte Esterase Negative (Negative) Urine Glucose Negative (Negative) mg/dL Urine Opiates Screen Negative (Negative) Urine Methadone Screen Negative (Negative) Ur Barbiturates Screen Negative (Negative) Ur Tricyclics Screen Negative (Negative) Ur Amphetamines Screen Negative (Negative) U Benzodiazepines Scrn Negative (Negative) Urine Cocaine Screen Negative (Negative) Ur THC Screen Negative (Negative) Ethyl Alcohol (<10) mg/dL 09/08/24 09/08/24 09/08/24 Range/Units 17:05 16:10 15:50 WBC (4.4-10.8) 10^3/uL RBC (3.93-5.22) 10^6/uL Hgb (11.2-15.7) g/dL Hct (36.0-46.0) % MCV (80-95) fL MCH (27.0-33.0) pg MCHC (32.0-36.0) % RDW (11.7-14.6) % Plt Count (130-400) 10^3/uL MPV (8.0-11.0) fL Immature Gran % % Neutrophils % % Lymphocytes % % Monocytes % % Eosinophils % % Basophils % % Nucleated RBC % (0.0-0.3) % Absolute Neutrophils (1.2-6.7) 10^3/uL Absolute Lymphocytes (1.2-3.4) 10^3/uL Absolute Monocytes (0.1-0.8) 10^3/uL Absolute Eosinophils (0.0-0.7) 10^3/uL Absolute Basophils (0.0-0.2) 10^3/uL ABG Sample Site Left Radial ABG pH 7.68 H* (7.35-7.45) ABG pCO2 20 L (35-45) mmHg ABG pO2 114 H (80-105) mmHg ABG HCO3 23 (22-26) mmol/L ABG Total CO2 (23-27) mmol/L ABG O2 Saturation > 99 H (95-98) % ABG Base Excess 3 (-2-3) mmol/L VBG pH VBG pCO2 VBG pO2 VBG HCO3 VBG Total CO2 VBG O2 Saturation VBG Base Excess VBG Lactate (0.6-1.4) mmol/L Sodium (136-145) mmol/L Potassium (3.5-5.1) mmol/L Chloride (98-107) mmol/L Carbon Dioxide (21.0-32.0) mmol/L Anion Gap (3-11) mmol/L BUN (7-18) mg/dL Creatinine (0.55-1.02) mg/dL Est GFR (CKD-EPI 2020) (mL/min/1.73m2) Glucose (74-106) mg/dL Calcium (8.5-10.1) mg/dL Ionized Calcium Magnesium (1.8-2.4) mg/dL Total Bilirubin (0.2-1.0) mg/dL AST (15-37) U/L ALT (14-59) U/L Alkaline Phosphatase (46-116) U/L Creatine Kinase (26-192) U/L Troponin I 25 (<or=51) ng/L NT-Pro-B Natriuret Pep (<300) pg/mL Total Protein (6.4-8.2) g/dL Albumin (3.4-5.0) g/dL Lipase (16-77) U/L TSH (0.36-3.74) uIU/mL Free T4 (0.76-1.46) ng/dL PTH Related Peptide Pending Urine Color (Yellow) Urine Clarity (Clear) Urine pH (5-8) Ur Specific [place] (1.005-1.025) Urine Protein (Neg-Trace) mg/dL Urine Ketones (Negative) mg/dL Urine Blood (Negative) Urine Nitrite (Negative) Urine Bilirubin (Negative) Urine Urobilinogen (Up to 0.2) mg/dL Ur Leukocyte Esterase (Negative) Urine Glucose (Negative) mg/dL Urine Opiates Screen (Negative) Urine Methadone Screen (Negative) Ur Barbiturates Screen (Negative) Ur Tricyclics Screen (Negative) Ur Amphetamines Screen (Negative) U Benzodiazepines Scrn (Negative) Urine Cocaine Screen (Negative) Ur THC Screen (Negative) Ethyl Alcohol (<10) mg/dL 09/08/24 09/08/24 Range/Units 15:35 15:18 WBC 9.15 (4.4-10.8) 10^3/uL RBC 4.86 (3.93-5.22) 10^6/uL Hgb 15.2 (11.2-15.7) g/dL Hct 43.0 (36.0-46.0) % MCV 89 (80-95) fL MCH 31.3 (27.0-33.0) pg MCHC 35.3 (32.0-36.0) % RDW 11.8 (11.7-14.6) % Plt Count 309 (130-400) 10^3/uL MPV 9.6 (8.0-11.0) fL Immature Gran % 0.2 % Neutrophils % 40.4 % Lymphocytes % 45.5 % Monocytes % 12.9 % Eosinophils % 0.7 % Basophils % 0.3 % Nucleated RBC % 0.0 (0.0-0.3) % Absolute Neutrophils 3.70 (1.2-6.7) 10^3/uL Absolute Lymphocytes 4.16 H (1.2-3.4) 10^3/uL Absolute Monocytes 1.18 H (0.1-0.8) 10^3/uL Absolute Eosinophils 0.06 (0.0-0.7) 10^3/uL Absolute Basophils 0.03 (0.0-0.2) 10^3/uL ABG Sample Site ABG pH (7.35-7.45) ABG pCO2 (35-45) mmHg ABG pO2 (80-105) mmHg ABG HCO3 (22-26) mmol/L ABG Total CO2 (23-27) mmol/L ABG O2 Saturation (95-98) % ABG Base Excess (-2-3) mmol/L VBG pH Cancelled VBG pCO2 Cancelled VBG pO2 Cancelled VBG HCO3 Cancelled VBG Total CO2 Cancelled VBG O2 Saturation Cancelled VBG Base Excess Cancelled VBG Lactate 9.8 H* (0.6-1.4) mmol/L Sodium 133 L (136-145) mmol/L Potassium 2.5 L* (3.5-5.1) mmol/L Chloride 86 L (98-107) mmol/L Carbon Dioxide 24.1 (21.0-32.0) mmol/L Anion Gap 22.9 H (3-11) mmol/L BUN 9 (7-18) mg/dL Creatinine 1.1 H (0.55-1.02) mg/dL Est GFR (CKD-EPI 2020) 61.22 (mL/min/1.73m2) Glucose 143 H (74-106) mg/dL Calcium 8.5 (8.5-10.1) mg/dL Ionized Calcium Magnesium 2.0 (1.8-2.4) mg/dL Total Bilirubin 1.08 H (0.2-1.0) mg/dL AST 18 (15-37) U/L ALT 14 (14-59) U/L Alkaline Phosphatase 96 (46-116) U/L Creatine Kinase 295 H (26-192) U/L Troponin I 4 (<or=51) ng/L NT-Pro-B Natriuret Pep (<300) pg/mL Total Protein 8.3 H (6.4-8.2) g/dL Albumin 4.5 (3.4-5.0) g/dL Lipase 35 (16-77) U/L TSH 0.03 L (0.36-3.74) uIU/mL Free T4 2.38 H (0.76-1.46) ng/dL PTH Related Peptide Urine Color (Yellow) Urine Clarity (Clear) Urine pH (5-8) Ur Specific [place] (1.005-1.025) Urine Protein (Neg-Trace) mg/dL Urine Ketones (Negative) mg/dL Urine Blood (Negative) Urine Nitrite (Negative) Urine Bilirubin (Negative) Urine Urobilinogen (Up to 0.2) mg/dL Ur Leukocyte Esterase (Negative) Urine Glucose (Negative) mg/dL Urine Opiates Screen (Negative) Urine Methadone Screen (Negative) Ur Barbiturates Screen (Negative) Ur Tricyclics Screen (Negative) Ur Amphetamines Screen (Negative) U Benzodiazepines Scrn (Negative) Urine Cocaine Screen (Negative) Ur THC Screen (Negative) Ethyl Alcohol (<10) mg/dL Intake and Output - 24 Hour Total 09/08/24 15:11 thru 09/08/24 20:59 Intake Total 1300 Balance 1300 Weight 87 kg Intake: IV 1300 Falls Risk Assessment History of Falls No History 09/08/24 17:27 Contributing Factors Impairments 09/08/24 17:27 Ambulatory Aids Independent 09/08/24 17:27 Tubes/Lines None 09/08/24 17:27 Gait Evaluation No gait disturbance 09/08/24 17:27 Cognition No cognitive impairment 09/08/24 17:27 Fall Total Score 3 09/08/24 17:27 Level of Risk Standard/Low Risk 09/08/24 17:27 Problems (Last Updated 11/08/24 @ 20:54 by Reji Schumacher) Secondary rhabdomyolysis (Acute) Post-surgical hypothyroidism (Acute) Depression with anxiety (Chronic) Acute hyperventilation (Acute) HTN (hypertension) (Chronic) Hypokalemia (Acute) Thyroid nodule (Chronic) v v v v v v v v v Sending and/or Receiving Nurses: Please use comment section below to note any information pertinent to the patient hand-off not included above. Information / Comments: episodes of hyperventilation, last was 10 minutes ago Report received from:Ava Tierney RN all questions answered; yes
--- NOTE | 2024-09-08 23:08 | ED.PROG_ITS ---
Date of service: 09/08/24 Time of Service: 23:08 Medical Decision Making Patient seen in conjunction with the PA, [id number] per evaluation was provided by me secondary to medical complexity. Patient is a recent thyroidectomy secondary to cancer. She is in preparation stages for radioactive iodine. She has had previous issues with electrolyte derangement. On evaluation she has symptoms concerning for tetany. She was noted to also be hyperventilating. However her calcium and magnesium levels are not significantly deranged. Ionized calcium unable to be obtained. Her potassium was noted to be low at 2.5. Despite IV replacement, there was not a significant change. The patient has been noted to have some tacky dysrhythmia associated with her spasms and this is an unclear etiology. Given her persistent hypokalemia, will admit to the hospital for further management. Quality:SDOH Health Related Social Needs: No Data to Display Critical Care Time Critical Care Time Critical Care Time: Yes Total Critical Care Time: 34 Attestation: CRITICAL CARE Upon my evaluation, this patient had a high probability of imminent or life- threatening deterioration due to electrolyte derangement which required my direct attention, intervention, and personal management. I have personally provided 34 minutes of critical care time exclusive of time spent on separately billable procedures. Time includes review of laboratory data, radiology results, discussion with consultants, and monitoring for potential decompensation. Interventions were performed as documented above Discharge Plan Disposition Patient Disposition: Admit to [facility] Condition: Stable Discharge Details Clinical Impression: Hypokalemia, Acute hyperventilation Primary Care Provider: Miriam Mayo ED Provider: Ken Richard Home Meds and New Rx's Prescriptions: No Action fluoxetine [Prozac] 10 mg capsule 10 mg PO DAILY levothyroxine 150 mcg tablet 150 mcg PO ONCE Patient Comments: TAKE ONE TABLET BY MOUTH EVERY DAY hydrochlorothiazide 25 mg tablet 25 mg PO DAILY Patient Comments: TAKE ONE TABLET BY MOUTH EVERY MORNING calcium carbonate [Calcium 600] 600 mg calcium (1,500 mg) tablet 1,200 mg PO BID
[2024-09-08] MEDS: Enoxaparin 40 MG/0.4 ML SYR SC (23:57)
[2024-09-08] MEDS: ELECTROLYTE-R SOLUTION 1,000 ML 150 ML IV (23:57)
[2024-09-08] MEDS: Normal Saline Flush 10 ML SYR IVP (23:57)
[2024-09-09] VITALS (13 sets, daily range): BP systolic 108–134; BP diastolic 66–75; PULSE 74–97; RESP 14–18; TEMP 37–37.5; O2SAT 90–97
[2024-09-09 01:06] LABS: Anion Gap 9.9 mmol/L (3-11); BUN 7 mg/dL (7-18); CO2 32.1 mmol/L (21.0-32.0); CREATININE 0.7 mg/dL (0.55-1.02); Calcium 9.1 mg/dL (8.5-10.1); Chloride 97 mmol/L (98-107); Glucose 102 mg/dL (74-106); Sodium 139 mmol/L (136-145)
[2024-09-09 01:20] LABS: Troponin I 73 ng/L (<or=51)
[2024-09-09] MEDS: POTASSIUM CHLORIDE 10 MEQ/100 ML BAG 100 MEQ IV_INF ×2 (03:10→04:14)
[2024-09-09 06:23] LABS: HCT 40.2 % (36.0-46.0); MCH 31.4 pg (27.0-33.0); MCHC 34.8 % (32.0-36.0); MCV 90 fL (80-95); MPV 10.1 fL (8.0-11.0); Platelet Count 231 10^3/uL (130-400); RBC 4.46 10^6/uL (3.93-5.22); RDW 12.3 % (11.7-14.6); RDW-SD 40.5 fL; WBC 6.65 10^3/uL (4.4-10.8)
[2024-09-09 06:38] LABS: Magnesium 2.3 mg/dL (1.8-2.4)
[2024-09-09 06:42] LABS: Creatine Kinase 975 U/L (26-192)
[2024-09-09 06:46] LABS: Troponin I 49 ng/L (<or=51)
[2024-09-09 08:10] LABS: Anion Gap 13.3 mmol/L (3-11); BUN 6 mg/dL (7-18); CO2 27.7 mmol/L (21.0-32.0); CREATININE 0.7 mg/dL (0.55-1.02); Calcium 8.4 mg/dL (8.5-10.1); Chloride 100 mmol/L (98-107); Glucose 95 mg/dL (74-106); Potassium 3.2 mmol/L (3.5-5.1); Sodium 141 mmol/L (136-145)
[2024-09-09] MEDS: FLUoxetine 10 MG TAB PO (08:48)
[2024-09-09] MEDS: Calcium Carbonate 1.5 GM TAB PO (08:49)
[2024-09-09] MEDS: Potassium Chloride 20 MEQ TABCR 40 MEQ PO (09:33)
[2024-09-09 11:18] LABS: Anion Gap 9.1 mmol/L (3-11); BUN 4 mg/dL (7-18); CO2 31.9 mmol/L (21.0-32.0); CREATININE 0.7 mg/dL (0.55-1.02); Calcium 8.4 mg/dL (8.5-10.1); Chloride 102 mmol/L (98-107); Glucose 107 mg/dL (74-106); Potassium 3.3 mmol/L (3.5-5.1); Sodium 143 mmol/L (136-145)
--- NOTE | 2024-09-09 11:25 | PHA.REVIEW2 ---
Pharmacy Admission Review Admission Clinical Review Admission Pharmacy Review: Secondary rhabdomyolysis (Acute) Acute hyperventilation (Acute) Hypokalemia (Acute) No Known Allergies Allergy (Verified 09/08/24 15:19) Resuscitation Status Full Code Height 5 ft 4 in Weight 81.7 kg Comments Comments/Follow Ups: Watch for addition of any QTc prolonging meds Pharmacy Admission Review Renal Dosing Renal Dosing: BUN 4 mg/dL (7-18) L 09/09/24 11:00 Creatinine 0.7 mg/dL (0.55-1.02) 09/09/24 11:00 Medications needing adjustments: Reviewed (CrCl 99.37 mL/min) List of meds needing interventions: Current medications are okay Anticoagulation Anticoagulation: Hgb 14.0 g/dL (11.2-15.7) 09/09/24 05:45 Hct 40.2 % (36.0-46.0) 09/09/24 05:45 Plt Count 231 10^3/uL (130-400) 09/09/24 05:45 Creatinine 0.7 mg/dL (0.55-1.02) 09/09/24 11:00 DVT Prophylaxis: Reviewed Medications: Enoxaparin (40mg daily) Relevant Labs Relevant Labs: Sodium 143 mmol/L (136-145) 09/09/24 11:00 Potassium 3.3 mmol/L (3.5-5.1) L 09/09/24 11:00 Chloride 102 mmol/L (98-107) 09/09/24 11:00 Magnesium 2.3 mg/dL (1.8-2.4) 09/09/24 05:45 Electrolytes, C-Reactive P, ESR: Reviewed (K increased from 2.5 - has order for PO 40 mEq daily and receiving IV infusion this AM) Cardiac Review Cardiac Review: Troponin I 49 ng/L (<or=51) 09/09/24 05:45 NT-Pro-B Natriuret Pep 63 pg/mL (<300) 09/08/24 19:30 BP, HR, EF%: Reviewed (BP and HR WNL) QTc Review QTc: Reviewed (582 from 09/08/24) IV to PO Switch IV Medications: Reviewed Home Meds Home Med List reviewed: Reviewed Relevent Home Meds Not ordered & why?: HCTZ (severe hypokalemia) and levothyroxine (on hold per H+P) Current Meds Current Medication Order Review: Intervened Comments: Changed calcium carbonate order from 1.2g BID to 1.5g BID Comments Comments/Follow Ups: Watch for addition of any QTc prolonging meds
--- NOTE | 2024-09-09 11:51 | DSE_ITS ---
Date of service: 09/09/24 Time of Service: 11:51 DS: Diagnosis Discharge Diagnosis (1) Acute hyperventilation: Status: Acute (2) Hypokalemia: Status: Acute (3) Secondary rhabdomyolysis: Status: Acute (4) Post-surgical hypothyroidism: Status: Chronic (5) Thyroid nodule: Status: Chronic (6) HTN (hypertension): Status: Chronic (7) Depression with anxiety: Status: Chronic Discharge Plan Disposition Patient Disposition: Home Condition: Good Discharge Details Reason For Visit: Severe hypokalemia, Respiratory alkalosis with.... Admit Date/Time: 09/08/24 22:13 Admit Provider: Reji Schumacher Attending Provider: Reji Schumacher Primary Care Provider: Kb STEVENMiriam Hospital Course Hospital Course: Patient initially presented with muscle spasms and symptoms of hyperventilation likely due to a combination of severe anxiety surrounding her recent thyroid cancer diagnosis and treatment. Additionally, she was found to be hypokalemic with a potassium of 2.5 that that did not improve despite repletion in the emergency department. While hospitalized patient's bindery machine tender at [facility] was consulted and they recommended holding her thyroid replacement. Patient required additional potassium replacement on the morning of 09/09/2024 which did result in further improvement. Given that the patient symptoms had resolved and her potassium was improving and was determined that she was stable for discharge home, prescription for 40 mEq of p.o. potassium daily and will keep her appointments with [facility] endocrinology for injections tomorrow. Home Meds and New Rx's Prescriptions: New potassium chloride [Klor-Con M20] 20 mEq Tablet,Er Particles/Crystals 40 meq PO DAILY Qty: 60 0RF Continued fluoxetine [Prozac] 10 mg capsule 10 mg PO DAILY levothyroxine 150 mcg tablet 150 mcg PO ONCE Patient Comments: TAKE ONE TABLET BY MOUTH EVERY DAY hydrochlorothiazide 25 mg tablet 25 mg PO DAILY Patient Comments: TAKE ONE TABLET BY MOUTH EVERY MORNING calcium carbonate [Calcium 600] 600 mg calcium (1,500 mg) tablet 1,200 mg PO BID Discharge Instructions Activity:: Activity as Tolerated Equipment/Supplies:: No Equipment Needed Diet:: As Tolerated Discharge Orders Discharge Orders: Discharge Order (Routine); Ordered 09/09/24 Ordered By: Roc Cortés DS: Summary Time Spent with Patient providing and/or coordinating discharge services: Greater than 30 minutes Status at Discharge Functional status at discharge: independent ambulation Overall status at discharge: patient is back to baseline Mental Status: mental status grossly normal Speech and Movement: speech and movement normal Mood: congruent mood Affect: normal affect Quality:SDOH Health Related Social Needs: No Data to Display Exam Narrative Exam Narrative: Well-appearing female sitting up in bed in no acute distress, ANO x 4, heart regular rhythm, lungs clear to auscultation bilaterally, abdomen soft, nontender, nondistended Psych Mental Status: mental status grossly normal Speech and Movement: speech and movement normal Mood: congruent mood Affect: normal affect DS: Data Vitals/I&O Vitals and I&O: Vital Signs Temperature 99.5 F 09/09/24 04:01 Temperature Source Temporal Artery Scan 09/09/24 04:00 Pulse 83 09/09/24 08:01 Pulse 91 H 09/09/24 08:01 Respiratory Rate 17 09/09/24 08:01 Respiratory Effort Normal, Non-Labored 09/08/24 23:23 Respiratory Depth Normal 09/08/24 23:23 Respiratory Pattern Normal 09/08/24 23:23 Blood Pressure 131/71 09/09/24 08:01 Blood Pressure Mean 86 09/09/24 08:01 Blood Pressure Position Supine 09/08/24 23:23 Pulse Oximetry 97 09/09/24 06:30 Oxygen Delivery Method Room Air 09/09/24 04:00 Oxygen Flow Rate 0 09/09/24 04:00 Intake & Output 09/08/24 09/09/24 09/09/24 17:59 05:59 17:59 Intake Total 1620 / 1620 1000 / 1000 Output Total 1500 / 1500 Balance 120 / 120 1000 / 1000 Weight 191 lb 12.835 oz 179 lb 14.355 oz 180 lb 1.883 oz Intake: IV 1500 / 1500 1000 / 1000 Oral 120 / 120 Output: Urine 1500 / 1500 Other: Urine Color Yellow Urine Appearance Clear Urine Odor None Data Completed and Pending Labs on day of discharge: Labs from last 24 hours 09/09/24 09/09/24 09/09/24 11:00 05:45 00:45 WBC 6.65 RBC 4.46 Hgb 14.0 Hct 40.2 MCV 90 MCH 31.4 MCHC 34.8 RDW 12.3 Plt Count 231 MPV 10.1 Immature Gran % Neutrophils % Lymphocytes % Monocytes % Eosinophils % Basophils % Nucleated RBC % Absolute Neutrophils Absolute Lymphocytes Absolute Monocytes Absolute Eosinophils Absolute Basophils ABG Sample Site ABG pH ABG pCO2 ABG pO2 ABG HCO3 ABG Total CO2 ABG O2 Saturation ABG Base Excess VBG pH VBG pCO2 VBG pO2 VBG HCO3 VBG Total CO2 VBG O2 Saturation VBG Base Excess VBG Lactate Sodium 143 141 139 Potassium 3.3 L 3.2 L 3.0 L Chloride 102 100 97 L Carbon Dioxide 31.9 27.7 32.1 H Anion Gap 9.1 13.3 H 9.9 BUN 4 L 6 L 7 Creatinine 0.7 0.7 0.7 Est GFR (CKD-EPI 2020) 105.30 105.30 105.30 Glucose 107 H 95 102 Calcium 8.4 L 8.4 L 9.1 Ionized Calcium Magnesium 2.3 Total Bilirubin AST ALT Alkaline Phosphatase Creatine Kinase 975 H Troponin I 49 73 H* NT-Pro-B Natriuret Pep Total Protein Albumin Lipase TSH Free T4 PTH Related Peptide Urine Color Urine Clarity Urine pH Ur Specific [place] Urine Protein Urine Ketones Urine Blood Urine Nitrite Urine Bilirubin Urine Urobilinogen Ur Leukocyte Esterase Urine Glucose Urine Opiates Screen Urine Methadone Screen Ur Barbiturates Screen Ur Tricyclics Screen Ur Amphetamines Screen U Benzodiazepines Scrn Urine Cocaine Screen Ur THC Screen Ethyl Alcohol 09/08/24 09/08/24 09/08/24 19:30 18:54 18:54 WBC RBC Hgb Hct MCV MCH MCHC RDW Plt Count MPV Immature Gran % Neutrophils % Lymphocytes % Monocytes % Eosinophils % Basophils % Nucleated RBC % Absolute Neutrophils Absolute Lymphocytes Absolute Monocytes Absolute Eosinophils Absolute Basophils ABG Sample Site ABG pH ABG pCO2 ABG pO2 ABG HCO3 ABG Total CO2 ABG O2 Saturation ABG Base Excess VBG pH VBG pCO2 VBG pO2 VBG HCO3 VBG Total CO2 VBG O2 Saturation VBG Base Excess VBG Lactate 3.4 H* Cancelled Sodium 134 L Potassium 2.5 L* Chloride 91 L Carbon Dioxide 29.1 Anion Gap 13.9 H BUN 9 Creatinine 1.0 Est GFR (CKD-EPI 2020) 68.63 Glucose 119 H Calcium 8.6 Ionized Calcium Magnesium Total Bilirubin AST ALT Alkaline Phosphatase Creatine Kinase Cancelled 246 H Troponin I 51 NT-Pro-B Natriuret Pep 63 Total Protein Albumin Lipase TSH Free T4 PTH Related Peptide Urine Color Urine Clarity Urine pH Ur Specific [place] Urine Protein Urine Ketones Urine Blood Urine Nitrite Urine Bilirubin Urine Urobilinogen Ur Leukocyte Esterase Urine Glucose Urine Opiates Screen Urine Methadone Screen Ur Barbiturates Screen Ur Tricyclics Screen Ur Amphetamines Screen U Benzodiazepines Scrn Urine Cocaine Screen Ur THC Screen Ethyl Alcohol < 3.0 09/08/24 09/08/24 09/08/24 18:18 17:23 17:10 WBC RBC Hgb Hct MCV MCH MCHC RDW Plt Count MPV Immature Gran % Neutrophils % Lymphocytes % Monocytes % Eosinophils % Basophils % Nucleated RBC % Absolute Neutrophils Absolute Lymphocytes Absolute Monocytes Absolute Eosinophils Absolute Basophils ABG Sample Site ABG pH ABG pCO2 ABG pO2 ABG HCO3 ABG Total CO2 ABG O2 Saturation ABG Base Excess VBG pH VBG pCO2 VBG pO2 VBG HCO3 VBG Total CO2 VBG O2 Saturation VBG Base Excess VBG Lactate Sodium Potassium Chloride Carbon Dioxide Anion Gap BUN Creatinine Est GFR (CKD-EPI 2020) Glucose Calcium Ionized Calcium Pending Magnesium Total Bilirubin AST ALT Alkaline Phosphatase Creatine Kinase Troponin I Cancelled NT-Pro-B Natriuret Pep Total Protein Albumin Lipase TSH Free T4 PTH Related Peptide Urine Color Yellow Urine Clarity Clear Urine pH 8.5 H Ur Specific [place] 1.020 Urine Protein Negative Urine Ketones 80 H Urine Blood Negative Urine Nitrite Negative Urine Bilirubin Negative Urine Urobilinogen 0.2 Ur Leukocyte Esterase Negative Urine Glucose Negative Urine Opiates Screen Negative Urine Methadone Screen Negative Ur Barbiturates Screen Negative Ur Tricyclics Screen Negative Ur Amphetamines Screen Negative U Benzodiazepines Scrn Negative Urine Cocaine Screen Negative Ur THC Screen Negative Ethyl Alcohol 09/08/24 09/08/24 09/08/24 17:05 16:10 15:50 WBC RBC Hgb Hct MCV MCH MCHC RDW Plt Count MPV Immature Gran % Neutrophils % Lymphocytes % Monocytes % Eosinophils % Basophils % Nucleated RBC % Absolute Neutrophils Absolute Lymphocytes Absolute Monocytes Absolute Eosinophils Absolute Basophils ABG Sample Site Left Radial ABG pH 7.68 H* ABG pCO2 20 L ABG pO2 114 H ABG HCO3 23 ABG Total CO2 ABG O2 Saturation > 99 H ABG Base Excess 3 VBG pH VBG pCO2 VBG pO2 VBG HCO3 VBG Total CO2 VBG O2 Saturation VBG Base Excess VBG Lactate Sodium Potassium Chloride Carbon Dioxide Anion Gap BUN Creatinine Est GFR (CKD-EPI 2020) Glucose Calcium Ionized Calcium Magnesium Total Bilirubin AST ALT Alkaline Phosphatase Creatine Kinase Troponin I 25 NT-Pro-B Natriuret Pep Total Protein Albumin Lipase TSH Free T4 PTH Related Peptide Pending Urine Color Urine Clarity Urine pH Ur Specific [place] Urine Protein Urine Ketones Urine Blood Urine Nitrite Urine Bilirubin Urine Urobilinogen Ur Leukocyte Esterase Urine Glucose Urine Opiates Screen Urine Methadone Screen Ur Barbiturates Screen Ur Tricyclics Screen Ur Amphetamines Screen U Benzodiazepines Scrn Urine Cocaine Screen Ur THC Screen Ethyl Alcohol 09/08/24 09/08/24 15:35 15:18 WBC 9.15 RBC 4.86 Hgb 15.2 Hct 43.0 MCV 89 MCH 31.3 MCHC 35.3 RDW 11.8 Plt Count 309 MPV 9.6 Immature Gran % 0.2 Neutrophils % 40.4 Lymphocytes % 45.5 Monocytes % 12.9 Eosinophils % 0.7 Basophils % 0.3 Nucleated RBC % 0.0 Absolute Neutrophils 3.70 Absolute Lymphocytes 4.16 H Absolute Monocytes 1.18 H Absolute Eosinophils 0.06 Absolute Basophils 0.03 ABG Sample Site ABG pH ABG pCO2 ABG pO2 ABG HCO3 ABG Total CO2 ABG O2 Saturation ABG Base Excess VBG pH Cancelled VBG pCO2 Cancelled VBG pO2 Cancelled VBG HCO3 Cancelled VBG Total CO2 Cancelled VBG O2 Saturation Cancelled VBG Base Excess Cancelled VBG Lactate 9.8 H* Sodium 133 L Potassium 2.5 L* Chloride 86 L Carbon Dioxide 24.1 Anion Gap 22.9 H BUN 9 Creatinine 1.1 H Est GFR (CKD-EPI 2020) 61.22 Glucose 143 H Calcium 8.5 Ionized Calcium Magnesium 2.0 Total Bilirubin 1.08 H AST 18 ALT 14 Alkaline Phosphatase 96 Creatine Kinase 295 H Troponin I 4 NT-Pro-B Natriuret Pep Total Protein 8.3 H Albumin 4.5 Lipase 35 TSH 0.03 L Free T4 2.38 H PTH Related Peptide Urine Color Urine Clarity Urine pH Ur Specific [place] Urine Protein Urine Ketones Urine Blood Urine Nitrite Urine Bilirubin Urine Urobilinogen Ur Leukocyte Esterase Urine Glucose Urine Opiates Screen Urine Methadone Screen Ur Barbiturates Screen Ur Tricyclics Screen Ur Amphetamines Screen U Benzodiazepines Scrn Urine Cocaine Screen Ur THC Screen Ethyl Alcohol PFSH All Active Problems (Updated 09/09/24 @ 11:51 by Roc Cortés MD) Secondary rhabdomyolysis (Acute) Post-surgical hypothyroidism (Chronic) Depression with anxiety (Chronic) Acute hyperventilation (Acute) HTN (hypertension) (Chronic) Hypokalemia (Acute) Thyroid nodule (Chronic) Medical History (Updated 09/09/24 @ 11:51 by Roc Cortés MD) History of depression Neck swelling Acute sinusitis Social History Smoking/Tobacco Use Status: Former Tobacco Use Tobacco: How many years used: 25 Smoking risk assessment performed?: Yes Alcohol Intake: current Alcohol Intake frequency: a few times a week Drug use: Never Substance use type: does not use Housing: house Do you feel safe at home: Yes Do you feel safe in your relationship?: Yes Time Spent with Patient Time Spent with Patient: <45 minutes Time was spent: preparing to see the patient(eg.review tests), obtaining and/or reviewing separately otained hiistory, ordering medications,tests, procedures, referring, communicating with other health career resource specialist, indepentently interpreting results, counseling the patient and care coordination
[2024-09-12 15:52] LABS: PTH-Related Peptide <0.4 pmol/L (< or = 4.2)
== END 2024-09-09 12:20 | disposition home or self-care (01) | DRG 641 ==
LOC: ER 22:31 → ICU 23:14
PROVIDERS: Family Medicine; Admitting Provider Family Medicine; Emergency Provider Physician Assistant; PCP Nurse Practitioner Family; Visit Provider Family Medicine
DX: E87.6 Hypokalemia (principal); M62.82 Rhabdomyolysis; F41.8 Other specified anxiety disorders; E87.3 Alkalosis; E87.20 Acidosis, unspecified; R06.4 Hyperventilation; E89.0 Postprocedural hypothyroidism; I10 Essential (primary) hypertension; Z79.899 Other long term (current) drug therapy; C73 Malignant neoplasm of thyroid gland; R74.8 Abnormal levels of other serum enzymes
CPT/HCPCS: 00123; 36415; 71275; 80048; 80053; 80307; 82550; 82805; 83690; 85027; 93005; 96361; 96365; 96366; 96375; 99291; J1650; 36600; 80320; 81003; 82330; 82397; 83605; 83735; 83880; 84439; 84443; 84484; 85025; 93010; 99223; 99239; J2060; J3475; J3480; J3490

== ENCOUNTER 2024-09-20 17:06 | Outpatient (REF) | payer BC, SELFPAY ==
[2024-09-20 20:31] LABS: Anion Gap 10.7 mmol/L (3-11); BUN 11 mg/dL (7-18); CO2 28.3 mmol/L (21.0-32.0); CREATININE 0.7 mg/dL (0.55-1.02); Calcium 8.1 mg/dL (8.5-10.1); Chloride 103 mmol/L (98-107); Creatine Kinase 140 U/L (26-192); Glucose 99 mg/dL (74-106); Potassium 3.7 mmol/L (3.5-5.1); Sodium 142 mmol/L (136-145)
== END 2024-09-20 17:07 | disposition home or self-care (01) ==
LOC: NCHCN 17:06
PROVIDERS: PCP Nurse Practitioner Family; Visit Provider Physician Assistant Medical
DX: E83.51 Hypocalcemia (principal); R74.8 Abnormal levels of other serum enzymes
CPT/HCPCS: 80048; 82550

== ENCOUNTER 2024-10-06 22:12 | Outpatient (REF) | payer BC, SELFPAY ==
[2024-10-06 21:02] LABS: Anion Gap 12.4 mmol/L (3-11); BUN 15 mg/dL (7-18); CO2 26.6 mmol/L (21.0-32.0); CREATININE 0.7 mg/dL (0.55-1.02); Calcium 7.9 mg/dL (8.5-10.1); Chloride 102 mmol/L (98-107); Glucose 95 mg/dL (74-106); Potassium 3.7 mmol/L (3.5-5.1); Sodium 141 mmol/L (136-145)
== END 2024-10-06 22:13 | disposition home or self-care (01) ==
LOC: NCHCN 22:12
PROVIDERS: PCP Nurse Practitioner Family; Visit Provider Physician Assistant Medical
DX: E87.6 Hypokalemia (principal)
CPT/HCPCS: 80048

== ENCOUNTER 2024-10-26 00:24 | Outpatient (CLI) | payer BC, SELFPAY ==
[2024-10-26 10:36] LABS: Calcium 7.6 mg/dL (8.5-10.1)
[2024-10-26 18:23] LABS: Parathyroid Hormone,Intact 22.6 pg/mL (19.0-88.0)
== END 2024-10-26 00:25 | disposition home or self-care (01) ==
LOC: LBO 00:24
PROVIDERS: PCP Nurse Practitioner Family; Visit Provider Nurse Practitioner Adult Health
DX: E83.51 Hypocalcemia (principal)
CPT/HCPCS: 36415; 82310; 83970

== ENCOUNTER 2025-07-11 11:59 | Emergency (ER) | payer BC, SELFPAY ==
--- NOTE | 2025-07-11 12:00 | RT.EKG_ITS ---
APPROVED REPORT Exam: Resting ECG Reason for Exam: electrolyte abnormality Patient Location: E HR:96 bpm ECG Measurements Heart Rate 96 AXIS [place] 141 P 72 QRSd 83 QRS 50 QT 357 T 27 QTc 452 Conclusion Sinus rhythm...normal P axis, V-rate 60- 99 No STEMI
[2025-07-11 12:04] VITALS: BP 152/92; PULSE 104; RESP 20; TEMP 36.6; O2SAT 98
[2025-07-11] MEDS: Normal Saline 1,000 ML 1000 ML IV (12:41)
--- NOTE | 2025-07-11 12:48 | W.ED.GENAD ---
Discharge Plan Disposition Patient Disposition: Home Discharge Details Clinical Impression: Acute hypokalemia, Generalized weakness Primary Care Provider: Unknown,Unknown ED Provider: Kvng Jarrett Home Meds and New Rx's Prescriptions: Continued fluoxetine [Prozac] 10 mg capsule 10 mg PO DAILY levothyroxine 150 mcg tablet 150 mcg PO ONCE Patient Comments: TAKE ONE TABLET BY MOUTH EVERY DAY hydrochlorothiazide 25 mg tablet 25 mg PO DAILY Patient Comments: TAKE ONE TABLET BY MOUTH EVERY MORNING calcium carbonate [Calcium 600] 600 mg calcium (1,500 mg) tablet 1,200 mg PO BID potassium chloride [Klor-Con M20] 20 mEq Tablet,Er Particles/Crystals 40 meq PO DAILY Qty: 60 0RF Discharge Instructions Instructions: Hypokalemia, High Potassium Diet Additional Instructions: Please follow-up with your primary care provider regarding your visit to the emergency department today, specifically, be sure to discuss further testing regarding your low potassium levels. Be sure to discuss results of all test performed here today to include radiology, and laboratory testing as well as results for any pending cultures. Should your symptoms worsen, or if you develop new concerning symptoms, please return immediately emergency department for further evaluation. Discharge Data Discharge Date/Time-TO BE ENTERED AT DEPARTURE: 07/11/25 15:49 HPI General Date/Time Provider Initiated Documentation: 07/11/25 12:09. HPI Narrative: MDM/Narrative: Initial Assessment: 50-year-old female with numbness and tingling in arms, legs, and face, particularly in the right hand. Symptoms began at 1030 hours today. History of low calcium and potassium. Differential Diagnosis: - Electrolyte imbalance: History of low calcium and potassium. Blood work ordered. IV fluids administered. - Neuropathy: Numbness and tingling in extremities. Unlikely to be a peripheral neuropathy given the multiple areas affected suspect is related to electrolyte imbalance. ED Course: - Ultrasound-guided IV line placed due to difficult venous access. - IV fluids administered. - Blood work ordered. Results show patient is hypokalemic at 3.1. Will replete with IV and p.o. formulations. And reassess patient's symptoms. Following electrolyte repletion patient has had complete resolution of her symptoms feels much better and is agreeable to plan for discharge to follow-up with her primary care provider Clinical Impression: - Electrolyte imbalance - Hypokalemia This document was created with assistance from [employer] Super[employer]. The patient consented to its use. Disposition: Home HPI: The patient is a 50-year-old female presenting with paresthesia and muscle fasciculations. She reports twitching, tingling, and numbness in the upper and lower extremities as well as the facial region, with pronounced numbness in the right hand and mild numbness in the left hand. She also notes slight tingling in her feet, which is showing signs of improvement. The patient is experiencing significant difficulty in forming a fist. These symptoms commenced at 1030 hours today. She denies vomiting, pyrexia, chills, cephalalgia, thoracic pain, or abdominal pain. The patient is compliant with her medication regimen and has a history of challenging venous access. She does not report nausea or pain. She has self-administered three doses each of calcium and potassium. The patient had a similar episode in September 2024, attributed to hypocalcemia and hypokalemia. ROS: Negative besides as mentioned above Exam: Vital signs: Reviewed. General Appearance: Alert and oriented. No acute distress. HEENT: NCAT, EOMI, not icteric. External ears normal. No rhinorrhea. Moist mucous membranes. Neck: Supple, full range of motion, no observable masses, No meningeal sign. Respiratory: No Respiratory distress. No tachypnea. Cardiovascular: RRR, no edema. Gastrointestinal: Soft, nondistended, No rebound tenderness. Back: No midline tenderness to palpation or palpable step-offs of the C/T/L spine. Musculoskeletal: Bilateral distal extremity spasms, normal tone and bulk Skin: Warm and dry, no rash. Neurological: Normal Gait, Grossly intact. Psychiatric: Appropriate for situation. Labs: Laboratory Tests Range/Units 07/11/25 07/11/25 12:40 13:10 WBC (4.4-10.8) 10^3/uL 5.84 RBC (3.93-5.22) 10^6/uL 5.09 Hgb (11.2-15.7) g/dL 15.6 Hct (36.0-46.0) % 44.6 MCV (80-95) fL 88 MCH (27.0-33.0) pg 30.6 MCHC (32.0-36.0) % 35.0 RDW (11.7-14.6) % 12.2 Plt Count (130-400) 10^3/uL 248 MPV (8.0-11.0) fL 9.3 Immature Gran % % 0.2 Neutrophils % % 58.0 Lymphocytes % % 31.5 Monocytes % % 9.6 Eosinophils % % 0.5 Basophils % % 0.2 Nucleated RBC % (0.0-0.3) % 0.0 Absolute Neutrophils (1.2-6.7) 10^3/uL 3.39 Absolute Lymphocytes (1.2-3.4) 10^3/uL 1.84 Absolute Monocytes (0.1-0.8) 10^3/uL 0.56 Absolute Eosinophils (0.0-0.7) 10^3/uL 0.03 Absolute Basophils (0.0-0.2) 10^3/uL 0.01 Sodium (136-145) mmol/L 135 L Potassium (3.5-5.1) mmol/L 3.1 L Chloride (98-107) mmol/L 96 L Carbon Dioxide (21.0-32.0) mmol/L 29.9 Anion Gap (3-11) mmol/L 9.1 BUN (7-18) mg/dL 11 Creatinine (0.55-1.02) mg/dL 0.7 Est GFR (CKD-EPI 2020) (mL/min/1.73m2) 104.65 Glucose (74-106) mg/dL 107 H Calcium (8.5-10.1) mg/dL 9.1 Magnesium (1.8-2.4) mg/dL 1.9 Total Bilirubin (0.2-1.0) mg/dL 1.8 H AST (15-37) U/L 17 ALT (14-59) U/L 20 Alkaline Phosphatase (46-116) U/L 121 H Troponin I (<or=51) ng/L 5 Total Protein (6.4-8.2) g/dL 8.1 Albumin (3.4-5.0) g/dL 4.4 Urine Color (Yellow) Yellow Urine Clarity (Clear) Clear Urine pH (5-8) 7.0 Ur Specific [place] (1.005-1.025) 1.015 Urine Protein (Neg-Trace) mg/dL Negative Urine Ketones (Negative) mg/dL Negative Urine Blood (Negative) Negative Urine Nitrite (Negative) Negative Urine Bilirubin (Negative) Negative Urine Urobilinogen (Up to 0.2) mg/dL 0.2 Ur Leukocyte Esterase (Negative) Negative Urine Glucose (Negative) mg/dL Negative Related Data Home Medications ?Medication ?Instructions ?Recorded ?Confirmed fluoxetine 10 mg capsule (Prozac) 10 mg PO DAILY 12/06/23 07/11/25 calcium carbonate (Calcium 600) 1,200 mg PO BID 05/08/24 07/11/25 hydrochlorothiazide 25 mg tablet 25 mg PO DAILY 05/08/24 07/11/25 levothyroxine 150 mcg tablet 150 mcg PO ONCE 05/08/24 07/11/25 potassium chloride 20 mEq 40 meq (2 x 20 mEq) PO DAILY #60 09/09/24 07/11/25 tablet,extended tabs release(part/cryst) (Klor-Con M) Previous Rx's ?Medication ?Instructions ?Recorded potassium chloride 20 mEq 40 meq (2 x 20 mEq) PO DAILY #60 09/09/24 tablet,extended tabs release(part/cryst) (Klor-Con M) Allergies Allergy/AdvReac Type Severity Reaction Status Date / Time No Known Allergies Allergy Verified 07/11/25 12:07 General Stated Complaint: [facility] CRYSTAL: 3 Course Vital Signs Vital signs: Vital Signs Temperature 36.6 C 07/11/25 12:04 Pulse 104 H 07/11/25 12:04 Respiratory Rate 20 07/11/25 12:04 Blood Pressure 152/92 H 07/11/25 12:04 Pulse Oximetry 98 07/11/25 12:04 Temperature 36.6 C 07/11/25 12:04 Temperature Source Oral 07/11/25 12:04 Pulse 104 H 07/11/25 12:04 Respiratory Rate 20 07/11/25 12:04 Blood Pressure 152/92 H 07/11/25 12:04 Pulse Oximetry 98 07/11/25 12:04 Oxygen Delivery Method Room Air 07/11/25 12:04 Oxygen Flow Rate 0 07/11/25 12:04 PFSH All Active Problems (Updated 07/11/25 @ 14:40 by Kvng Jarrett MD) Generalized weakness (Acute) Acute hypokalemia (Acute) Post-surgical hypothyroidism (Chronic) Depression with anxiety (Chronic) HTN (hypertension) (Chronic) Thyroid nodule (Chronic) Medical History (Updated 07/11/25 @ 14:40 by Kvng Jarrett MD) History of depression Neck swelling Acute sinusitis Social History Smoking/Tobacco Use Status: Former Tobacco Use Tobacco: How many years used: 25 Smoking risk assessment performed?: Yes Alcohol Intake: current Alcohol Intake frequency: a few times a week Drug use: Never Substance use type: does not use Housing: house Do you feel safe at home: Yes Do you feel safe in your relationship?: Yes
[2025-07-11 12:54] LABS: Abs Immature Grans 0.01 10^3/uL (0.0-0.06); HCT 44.6 % (36.0-46.0); HGB 15.6 g/dL (11.2-15.7); Immature Grans % 0.2 %; MCH 30.6 pg (27.0-33.0); MCHC 35.0 % (32.0-36.0); MCV 88 fL (80-95); MPV 9.3 fL (8.0-11.0); Platelet Count 248 10^3/uL (130-400); RBC 5.09 10^6/uL (3.93-5.22); RDW 12.2 % (11.7-14.6); RDW-SD 39.5 fL; WBC 5.84 10^3/uL (4.4-10.8)
[2025-07-11 13:12] LABS: ALT 20 U/L (14-59); AST 17 U/L (15-37); Albumin 4.4 g/dL (3.4-5.0); Alkaline Phosphatase 121 U/L (46-116); Anion Gap 9.1 mmol/L (3-11); BUN 11 mg/dL (7-18); Bilirubin, Total 1.8 mg/dL (0.2-1.0); CO2 29.9 mmol/L (21.0-32.0); Calcium 9.1 mg/dL (8.5-10.1); Chloride 96 mmol/L (98-107); Estimated GFR 104.65 (mL/min/1.73m2); Glucose 107 mg/dL (74-106); Magnesium 1.9 mg/dL (1.8-2.4); Potassium 3.1 mmol/L (3.5-5.1); Sodium 135 mmol/L (136-145); Total Protein 8.1 g/dL (6.4-8.2); Troponin I 5 ng/L (<or=51)
[2025-07-11 13:27] LABS: Glucose Negative (Negative)
[2025-07-11] MEDS: Potassium Chloride 20 MEQ TABCR 40 MEQ PO (13:37)
[2025-07-11] MEDS: POTASSIUM CHLORIDE 20 MEQ/100 ML BAG 50 MEQ IV_INF (13:38)
[2025-07-11] MEDS: MAGNESIUM SULFATE 2 GM/50 ML BAG IV_INF (13:39)
[2025-07-11 14:30] VITALS: BP 133/82; PULSE 83; RESP 18; O2SAT 98
[2025-07-11] MEDS: Acetaminophen 500 MG TAB 1000 MG PO (14:33)
== END 2025-07-11 15:49 | disposition home or self-care (01) ==
PROVIDERS: Emergency Provider General Practice
DX: E87.6 Hypokalemia (principal); R53.1 Weakness; I10 Essential (primary) hypertension
CPT/HCPCS: 80053; 93005; 96361; 96365; 96366; 99284; 81003; 83735; 84484; 85025; 93010; 99283; J3475; J3480

== ENCOUNTER 2025-07-29 13:53 | Emergency (ER) | payer BC, SELFPAY ==
[2025-07-29] VITALS (46 sets, daily range): BP systolic 134–174; BP diastolic 59–105; PULSE 70–121; RESP 9–37; TEMP 36.6; O2SAT 94–99
--- NOTE | 2025-07-29 14:00 | RT.EKG_ITS ---
APPROVED REPORT Exam: Resting ECG Reason for Exam: tetany Patient Location: E HR:108 bpm ECG Measurements Heart Rate 108 AXIS [place] 134 P 71 QRSd 86 QRS 57 QT 359 T 60 QTc 483 Conclusion Sinus tachycardia...rate> 99 I have reviewed and interpreted ECG and agree with software generated interpretation.
[2025-07-29] MEDS: diazePAM 10 MG/2 ML SYR 5 MG IVP (14:12)
[2025-07-29] MEDS: Lactated Ringers 1,000 ML 1000 ML IV (14:13)
[2025-07-29 14:32] LABS: Abs Immature Grans 0.02 10^3/uL (0.0-0.06); HCT 42.0 % (36.0-46.0); HGB 14.6 g/dL (11.2-15.7); Immature Grans % 0.2 %; MCH 30.0 pg (27.0-33.0); MCHC 34.8 % (32.0-36.0); MCV 86 fL (80-95); MPV 9.3 fL (8.0-11.0); Platelet Count 296 10^3/uL (130-400); RBC 4.86 10^6/uL (3.93-5.22); RDW 12.1 % (11.7-14.6); RDW-SD 38.6 fL; WBC 8.81 10^3/uL (4.4-10.8)
[2025-07-29 15:19] LABS: ALT 15 U/L (14-59); AST 21 U/L (15-37); Albumin 4.4 g/dL (3.4-5.0); Alkaline Phosphatase 119 U/L (46-116); Anion Gap 18.5 mmol/L (3-11); BUN 10 mg/dL (7-18); Bilirubin, Total 1.7 mg/dL (0.2-1.0); CO2 23.5 mmol/L (21.0-32.0); Calcium 8.6 mg/dL (8.5-10.1); Chloride 95 mmol/L (98-107); Estimated GFR 68.21 (mL/min/1.73m2); Glucose 120 mg/dL (74-106); Magnesium 1.5 mg/dL (1.8-2.4); Potassium 3.3 mmol/L (3.5-5.1); Sodium 137 mmol/L (136-145); TSH (W/Ref FT4) 0.01 uIU/mL (0.36-3.74); Total Protein 7.7 g/dL (6.4-8.2)
--- NOTE | 2025-07-29 15:30 | W.ED.GENAD ---
Discharge Plan Disposition Patient Disposition: Home Condition: Good Discharge Details Clinical Impression: Hypocalcemia, Hypomagnesemia, Hypokalemia Primary Care Provider: Unknown,Unknown ED Provider: Ken Law Home Meds and New Rx's Prescriptions: No Action fluoxetine [Prozac] 10 mg capsule 10 mg PO DAILY levothyroxine 150 mcg tablet 150 mcg PO ONCE Patient Comments: TAKE ONE TABLET BY MOUTH EVERY DAY hydrochlorothiazide 25 mg tablet 25 mg PO DAILY Patient Comments: TAKE ONE TABLET BY MOUTH EVERY MORNING calcium carbonate [Calcium 600] 600 mg calcium (1,500 mg) tablet 1,200 mg PO BID potassium chloride [Klor-Con M20] 20 mEq Tablet,Er Particles/Crystals 40 meq PO DAILY Qty: 60 0RF Discharge Instructions Instructions: Hypokalemia, Hypocalcemia, Hypomagnesemia Additional Instructions: At this time your magnesium, potassium, and calcium are all somewhat low. Please continue to take your supplements at home. Take a daily low-dose magnesium supplement. Drink plenty fluids and stay well-hydrated. Make sure to take a small bit of lemon juice with your water every day to help prevent kidney stones. If you notice any worsening of your symptoms, or any new symptoms such as vomiting, diarrhea, fever, chills, shortness of breath, chest pain, numbness, weakness, or fainting , please return immediately to the emergency department for reevaluation. Please follow up with your primary care provider as soon as possible for reassessment and reevaluation. As always, it was a pleasure participating in your medical care today. Discharge Data Discharge Date/Time-TO BE ENTERED AT DEPARTURE: 07/29/25 18:06 HPI General Date/Time Provider Initiated Documentation: 07/29/25 14:04. HPI Narrative: This is a pleasant 50-year-old female with a past medical history of surgical thyroidectomy secondary to thyroid cancer, subsequent hypothyroidism, hypertension, depression, who presents today for evaluation of severe muscle cramping and weakness. Ever since her thyroidectomy the patient has had episodes of tetany and weakness that has been attributed to hypokalemia and hypocalcemia. Today she states that she was out mowing the lawn, and while walking everything suddenly cramped up, her arms and legs cramped and she could not walk any further. Eventually EMS was called and she was brought to the ER for further assessment. Prior to coming in she did try to drink water, eat a cheese stick, had some coconut water and supplemental calcium. She denies any chest pain or headache. She admits to spasms in her arms legs and feet. She denies any other complaints at this time. No syncope. No other modifying factors. Related Data Home Medications ?Medication ?Instructions ?Recorded ?Confirmed fluoxetine 10 mg capsule (Prozac) 10 mg PO DAILY 12/06/23 07/29/25 calcium carbonate (Calcium 600) 1,200 mg PO BID 05/08/24 07/29/25 hydrochlorothiazide 25 mg tablet 25 mg PO DAILY 05/08/24 07/29/25 levothyroxine 150 mcg tablet 150 mcg PO ONCE 05/08/24 07/29/25 potassium chloride 20 mEq 40 meq (2 x 20 mEq) PO DAILY #60 09/09/24 07/29/25 tablet,extended tabs release(part/cryst) (Klor-Con M) Previous Rx's ?Medication ?Instructions ?Recorded potassium chloride 20 mEq 40 meq (2 x 20 mEq) PO DAILY #60 09/09/24 tablet,extended tabs release(part/cryst) (Klor-Con M) Allergies Allergy/AdvReac Type Severity Reaction Status Date / Time No Known Allergies Allergy Verified 07/29/25 13:57 General Stated Complaint: GenMedical CRYSTAL: 3 Exam Narrative Exam Narrative: 1.Const: Well-nourished, Well-developed, appearing stated age 2.Eyes: PERRL, no conjunctival injection, and symmetrical lids. 3.ENT: Atraumatic external nose and ears. Moist MM. Neck: Symmetric, trachea midline, No thyromegaly. 4.CVS: +S1/S2, Peripheral pulses 2+ and equal in all extremities. Brisk capillary refill in all extremities. 5.RESP: Unlabored respiratory effort. Clear to auscultation bilaterally. No wheezes rales or rhonchi 6.GI: Soft, Nontender/Nondistended, No hepatosplenomegaly. No guarding or rebound. 7.MSK: Notable spasms of the upper and lower extremities. Currently hands are in a somewhat fist like position, arms are bent and flexed at the elbow, feet are plantarflexed bilaterally. Patient has pain with moving the upper and lower extremities secondary to spasm and tension. No torticollis. She is able to speak, but does it slowly and cautiously. No focal deficits otherwise though to suggest neurologic etiology. Negative Chvostek sign, positive Trousseau sign. 8.Skin: Warm, Dry. No rashes or lesions. 9.Neuro: health information management director II-XII grossly intact. Sensation grossly intact, no focal neurologic deficits. 10.Psych: (AAO) x3. Appropriate mood and affect Course Vital Signs Vital signs: Vital Signs Temperature 36.6 C 07/29/25 13:58 Pulse 70 07/29/25 13:58 Respiratory Rate 20 07/29/25 13:58 Blood Pressure 138/83 07/29/25 13:58 Pulse Oximetry 98 07/29/25 13:58 Temperature 36.6 C 07/29/25 14:04 Temperature Source Oral 07/29/25 14:04 Pulse 70 07/29/25 14:04 Respiratory Rate 20 07/29/25 14:20 Respiratory Effort Normal, Non-Labored 07/29/25 14:20 Respiratory Depth Normal 07/29/25 14:20 Respiratory Pattern Normal 07/29/25 14:20 Blood Pressure 138/83 07/29/25 14:04 Blood Pressure Position Sitting 07/29/25 14:04 Pulse Oximetry 98 07/29/25 14:04 Oxygen Delivery Method Room Air 07/29/25 14:04 Oxygen Flow Rate 0 07/29/25 14:04 Pain Level 5 07/29/25 14:04 Lab/Test Results Lab/Test Results: Laboratory Tests Range/Units 07/29/25 14:14 WBC (4.4-10.8) 10^3/uL 8.81 RBC (3.93-5.22) 10^6/uL 4.86 Hgb (11.2-15.7) g/dL 14.6 Hct (36.0-46.0) % 42.0 MCV (80-95) fL 86 MCH (27.0-33.0) pg 30.0 MCHC (32.0-36.0) % 34.8 RDW (11.7-14.6) % 12.1 Plt Count (130-400) 10^3/uL 296 MPV (8.0-11.0) fL 9.3 Immature Gran % % 0.2 Neutrophils % % 50.1 Lymphocytes % % 40.9 Monocytes % % 8.2 Eosinophils % % 0.3 Basophils % % 0.3 Nucleated RBC % (0.0-0.3) % 0.0 Absolute Neutrophils (1.2-6.7) 10^3/uL 4.41 Absolute Lymphocytes (1.2-3.4) 10^3/uL 3.60 H Absolute Monocytes (0.1-0.8) 10^3/uL 0.72 Absolute Eosinophils (0.0-0.7) 10^3/uL 0.03 Absolute Basophils (0.0-0.2) 10^3/uL 0.03 Sodium (136-145) mmol/L 137 Potassium (3.5-5.1) mmol/L 3.3 L Chloride (98-107) mmol/L 95 L Carbon Dioxide (21.0-32.0) mmol/L 23.5 Anion Gap (3-11) mmol/L 18.5 H BUN (7-18) mg/dL 10 Creatinine (0.55-1.02) mg/dL 1.0 Est GFR (CKD-EPI 2020) (mL/min/1.73m2) 68.21 Glucose (74-106) mg/dL 120 H Calcium (8.5-10.1) mg/dL 8.6 Magnesium (1.8-2.4) mg/dL 1.5 L Total Bilirubin (0.2-1.0) mg/dL 1.7 H AST (15-37) U/L 21 ALT (14-59) U/L 15 Alkaline Phosphatase (46-116) U/L 119 H Total Protein (6.4-8.2) g/dL 7.7 Albumin (3.4-5.0) g/dL 4.4 TSH (0.36-3.74) uIU/mL 0.01 L Medical Decision Making This is a pleasant 50-year-old female with a past medical history of surgical thyroidectomy secondary to thyroid cancer, subsequent hypothyroidism, hypertension, depression, who presents today for evaluation of severe muscle cramping and weakness. Ever since her thyroidectomy the patient has had episodes of tetany and weakness that has been attributed to hypokalemia and hypocalcemia. Today she states that she was out mowing the lawn, and while walking everything suddenly cramped up, her arms and legs cramped and she could not walk any further. Eventually EMS was called and she was brought to the ER for further assessment. Prior to coming in she did try to drink water, eat a cheese stick, had some coconut water and supplemental calcium. She denies any chest pain or headache. She admits to spasms in her arms legs and feet. She denies any other complaints at this time. No syncope. No other modifying factors. Physical exam demonstrates Notable spasms of the upper and lower extremities. Currently hands are in a somewhat fist like position, arms are bent and flexed at the elbow, feet are plantarflexed bilaterally. Patient has pain with moving the upper and lower extremities secondary to spasm and tension. No torticollis. She is able to speak, but does it slowly and cautiously. No focal deficits otherwise though to suggest neurologic etiology. Negative Chvostek sign, positive Trousseau sign. Patient has no rash or neck pain to suggest meningeal mass, or meningococcemia. No headache or fever. I suspect that the patient does have evidence of either hypocalcemia, hypokalemia or hypomagnesemia. EKG does not show any evidence of significant interval abnormality, she does have sinus tachycardia without prolonged QRS or QT abnormality. Will rehydrate, evaluate for electrolyte abnormality, monitor closely and reassess. Patient will be given a liter of LR, and we will give 5 Valium to help with the tetany and spasms. She denies any recent trauma or lacerations that would suggest actual tetanus. 3:44 PM Patient's electrolytes have returned, patient does demonstrate mild hypokalemia, hypochloremia, hypomagnesemia, and borderline hypocalcium Johana. We will collect these electrolyte abnormalities, will give 20 of IV and 40 of oral potassium, will give an additional liter of normal saline on top of the initial liter of lactated Ringer's that was given. We will give 2 g of IV magnesium and 1 amp of calcium. Will monitor closely and reassess. Bilirubin is elevated however this is chronically elevated. 7 PM On reassessment patient has complete resolution of her symptoms. She feels well. She is able to ambulate well, vital signs are stable. Patient stable for discharge. Discussed red flags which to return. I have extensively reviewed the treatment plan and discharge instructions with the patient and their family. I have addressed all patient concerns at this time. The patient and family was made aware of what symptoms to monitor for that would warrant a return to the emergency department. Discussed the plan with the patient and family, they demonstrate verbal understanding and agreement with our assessment and plan at this time. The documentation in this chart was dictated using [employer] dictation software. Please excuse any dictation errors. PFSH All Active Problems (Updated 07/29/25 @ 17:47 by Ken Law DO) Hypokalemia (Acute) Hypomagnesemia (Acute) Hypocalcemia (Acute) Generalized weakness (Acute) Acute hypokalemia (Acute) Post-surgical hypothyroidism (Chronic) Depression with anxiety (Chronic) HTN (hypertension) (Chronic) Thyroid nodule (Chronic) Medical History (Updated 07/29/25 @ 17:47 by Ken Law DO) History of depression Neck swelling Acute sinusitis Social History Smoking/Tobacco Use Status: Former Tobacco Use Tobacco: How many years used: 25 Smoking risk assessment performed?: Yes Alcohol Intake: current Alcohol Intake frequency: a few times a week Drug use: Never Substance use type: does not use Housing: house Do you feel safe at home: Yes Do you feel safe in your relationship?: Yes
[2025-07-29] MEDS: Calcium Gluconate 4.65 MEQ/10 ML VIAL 4.65 MG IVP (15:36)
[2025-07-29] MEDS: Cyclobenzaprine 10 MG TAB PO (15:38)
[2025-07-29] MEDS: Normal Saline 1,000 ML 1000 ML IV (15:44)
[2025-07-29] MEDS: POTASSIUM CHLORIDE 20 MEQ/100 ML BAG 50 MEQ IV_INF (15:50)
[2025-07-29] MEDS: MAGNESIUM SULFATE 2 GM/50 ML BAG IV_INF (15:50)
[2025-07-29] MEDS: Potassium Chloride 10 MEQ CAPCR 40 MEQ PO (16:03)
== END 2025-07-29 18:06 | disposition home or self-care (01) ==
PROVIDERS: Emergency Provider Student in an Organized Health Care Education/Training Program
DX: R53.1 Weakness; E83.42 Hypomagnesemia; E83.51 Hypocalcemia; E87.6 Hypokalemia; Z85.850 Personal history of malignant neoplasm of thyroid
CPT/HCPCS: 80053; 93005; 96361; 96365; 96366; 96375; 99284; 83735; 84439; 84443; 85025; 93010; J0612; J3360; J3475; J3480

== ENCOUNTER 2025-08-24 03:26 | Outpatient (CLI) | payer BC, SELFPAY ==
[2025-08-24 17:53] LABS: Albumin 4.0 g/dL (3.4-5.0); Calcium 8.6 mg/dL (8.5-10.1); Magnesium 2.0 mg/dL (1.8-2.4); TSH 0.04 uIU/mL (0.36-3.74)
[2025-08-24 18:33] LABS: Vitamin D 25 Total 33 ng/mL (30-100)
[2025-08-29 17:37] LABS: Calcium, Random Ur 4 mg/dL; Creatinine, Random Ur 35 mg/dL (16 - 326)
== END 2025-08-24 03:27 | disposition home or self-care (01) ==
LOC: LBO 03:26
PROVIDERS: Visit Provider Internal Medicine
DX: E83.51 Hypocalcemia (principal); E55.9 Vitamin D deficiency, unspecified; E03.9 Hypothyroidism, unspecified
CPT/HCPCS: 36415; 82306; 82310; 82040; 83735; 83970; 84100; 84443

== ENCOUNTER 2025-09-26 10:26 | Outpatient (REF) | payer BC, SELFPAY ==
[2025-09-26 18:35] LABS: Anion Gap 10.8 mmol/L (3-11); BUN 9 mg/dL (9-23); CO2 21.2 mmol/L (20.0-31.0); Calcium 8.8 mg/dL (8.3-10.6); Chloride 105 mmol/L (98-107); Glucose 77 mg/dL (74-106); Potassium 4.3 mmol/L (3.5-5.1); Sodium 137 mmol/L (136-145)
== END 2025-09-26 10:27 | disposition home or self-care (01) ==
LOC: NCHCN 10:26
PROVIDERS: Visit Provider Physician Assistant Medical
DX: I10 Essential (primary) hypertension (principal)
CPT/HCPCS: 80048